=== PATIENT | female | born 1945 | race Caucasian/White ===

== ENCOUNTER 2016-11-04 21:28 | Emergency (ER) | payer MEDICARE ==
[~2016-11-04] VITALS: Ht 162.6 cm; Wt 87.6 kg
[~2016-11-04 21:28] MED LIST: ACET325 PO; ALBU0.086 NEB; ALBU1AER INH; ALBU8I INH; ATEN-100 PO; ATEN1TAB73 PO; CELE100C PO; CELE200 PO; CLAR10TA7 PO; CREON24 PO; CYMB30CA PO; CYMB60CA PO; DILA2TAB4 PO; LEVA750T PO; LEVO88TA2 PO; LIPA1CAP5 PO; MONT4CHW2 CHEW; NEXI20CA PO; OMEG500C2 PO; PROM1SUP12 PR; PROV200T11 PO; ROSU40 PO; SYNT88TA PO; TAB-TAB PO; TIGA300C2 PO; TUMS500C PO; ZOFR4TAB3 SL
[2016-11-04 21:31] VITALS: BP 122/84; PULSE 108; RESP 22; TEMP 102; O2SAT 94
--- NOTE | 2016-11-04 22:10 | PD ---
HPI Chief Complaint: Fever Time Seen by Provider: 21:46 Travel History International Travel<30 days: No Contact w/Intl Traveler<30days: No Traveled to known affect area: No History of Present Illness HPI 70-year-old female complains of fever, headache, shortness of breath and nausea vomiting. Patient states that she started having fever and shortness of breath and headache since yesterday. Patient states that the headache is shooting pain in the back of the head. Patient denies any visual change. Patient denies any neck pain. Patient complains of left ear pain. Patient denies any sore throat. Patient denies any cough. Patient denies shortness of breath. Patient states that she has some mild abdominal discomfort. Patient states that she vomited yesterday evening. Patient denies any dysuria or frequency. Patient denies any vaginal discharge or bleeding. Patient has history of COPD, hypothyroidism, pancreatitis, sarcoidosis. PFSH Past Medical History Arthritis: Yes Asthma: Yes Cancer: No Cardiovascular Problems: No High Cholesterol: Yes Chemotherapy: No COPD: No Cerebrovascular Accident: No Diminished Hearing: No Endocrine: Yes Gastrointestinal Disorders: Yes (IBS, GERD) GERD: Yes Genitourinary: No Hypertension: Yes Musculoskeletal: Yes Neurologic: Yes Psychiatric: No Reproductive: No Respiratory: Yes (ASTHMA, PLEURISY) Migraines: Yes Pancreatitis: Yes Radiation Therapy: No Thyroid Disease: Yes (HYPO) Triglycerides - High: Yes Tetanus Vaccination: Unknown ?: Not Menopausal: Yes Dilation and Curettage (D&C): Yes Past Surgical History Abdominal Surgery: Yes (APPENDECTOMY) Appendectomy: Yes Body Medical Devices: LEFT BREAST-TITATINUM CHIP Cardiac Surgery: Yes Cholecystectomy: Yes Ear Surgery: Yes (SINUS) Endocrine Surgery: No Eye Surgery: No Genitourinary Surgery: No Gynecologic Surgery: Yes (D & C) Oral Surgery: No Thoracic Surgery: No Tonsillectomy: Yes Other Surgery: Yes (SINUS) Social History Alcohol Use: No Tobacco Use: No Substance Use: No Allergies-Medications (Allergen,Severity, Reaction): Coded Allergies: penicillin G (Verified Allergy, Severe, Confusion, 11/04/16) diphenhydramine (Verified Allergy, Mild, VIOLENCE, 11/04/16) Reported Meds & Prescriptions Reported Meds & Active Scripts Active Creon (Amylase/Lipase/Protease) 24,000 Unt Cap 1 Cap PO TID 30 Days Phenergan 25 mg supp (Promethazine HCl) 25 Mg Sup 25 Mg NV Q6H PRN FOR NAUSEA/VOMITING Zofran ODT (Ondansetron HCl) 4 Mg Tab 4 Mg SL Q6H PRN FOR NAUSEA/VOMITING Reported Proventil Ud 0.083% (2.5 Mg/3 Ml) (Albuterol Sulfate) 2.5 Mg/3 Ml Inha 2.5 Mg NEB Q4HR NEB Singulair (Montelukast Sodium) 4 Mg Chew 4 Mg CHEW HS Proair Hfa (Albuterol Sulfate) 8.5 Gm Aero 1 Puff INH ONCE * SHAKE WELL BEFORE USE * Celebrex (Celecoxib) 100 Mg Cap 100 Mg PO DAILY PRN Nexium (Esomeprazole Magnesium) Unknown Strength Cap Unknown Dose PO DAILY Multivitamin (Multivitamins) 1 Tab Tab 1 Tab PO DAILY Provigil (Modafinil) 200 Mg Tab 100-200 Mg PO DAILY Tums (Calcium Carbonate) 500 Mg Chew 500 Mg PO PRN Celebrex (Celecoxib) 200 Mg Cap 200 Mg PO DAILY Tylenol (Acetaminophen) 325 Mg Tab 650 Mg PO Q4H Welsh-3 Krill Oil (Krill Oil) 500 Mg Cap 1,000 Mg PO DAILY Claritin (Loratadine) 10 Mg Tab 10 Mg PO DAILY Atenolol 25 Mg Tab 25 Mg PO DAILY Synthroid (Levothyroxine Sodium) 88 Mcg Tab 88 Mcg PO DAILY Cymbalta (Duloxetine HCl) 60 Mg Cap 60 Mg PO DAILY Review of Systems General / Constitutional: Positive: Fever Eyes: No: Visual changes HENT: Positive: Headaches Cardiovascular: No: Chest Pain or Discomfort Respiratory: No: Shortness of Breath Gastrointestinal: Positive: Vomiting, No: Abdominal Pain Genitourinary: No: Dysuria Musculoskeletal: No: Pain Skin: No Rash Neurologic: No: Weakness Psychiatric: No: Depression Endocrine: No: Polydipsia Hematologic/Lymphatic: No: Easy Bruising Physical Exam Narrative GENERAL: Well-nourished, well-developed patient. SKIN: Focused skin assessment warm/dry. HEAD: Normocephalic. EYES: No scleral icterus. No injection or drainage. TM: Clear. Throat: Nonerythematous. NECK: Supple, trachea midline. No JVD or lymphadenopathy. No meningismus CARDIOVASCULAR: Regular rate and rhythm without murmurs, gallops, or rubs. RESPIRATORY: Breath sounds equal bilaterally. No accessory muscle use. GASTROINTESTINAL: Abdomen soft, non-tender, nondistended. MUSCULOSKELETAL: No cyanosis, or edema. BACK: Nontender without obvious deformity. No CVA tenderness. Neurologic exam: Patient awake alert oriented 3. No obvious focal neurological deficit. Data Data Last Documented VS Vital Signs Date Time Temp Pulse Resp B/P (MAP) Pulse Ox O2 Delivery O2 Flow Rate FiO2 11/05/16 00:12 Room Air 11/05/16 00:11 102.5 97 18 151/62 (91) 95 Orders Orders Electrocardiogram (11/04/16 21:55) Complete Blood Count With Diff (11/04/16 21:55) Comprehensive Metabolic Panel (11/04/16 21:55) Creatine Kinase (Cpk) (11/04/16 21:55) Troponin I (11/04/16 21:55) B-Type Natriuretic Peptide (11/04/16 21:55) Prothrombin Time / Inr (Pt) (11/04/16 21:55) Act Partial Throm Time (Ptt) (11/04/16 21:55) Blood Culture (11/04/16 21:55) Urinalysis - C+S If Indicated (11/04/16 21:55) Thyroid Stimulating Hormone (11/04/16 21:55) Influenzae A/B Antigen (11/04/16 21:55) Chest, Single Ap (11/04/16 21:55) Ct Brain W/O Iv Contrast(Rout) (11/04/16 21:55) Iv Access Insert/Monitor (11/04/16 21:55) Ecg Monitoring (11/04/16 21:55) Oximetry (11/04/16 21:55) Lactic Acid (11/04/16 21:55) Lipase (11/04/16 22:08) Sodium Chlor 0.9% 1000 Ml Inj (Ns 1000 M (11/04/16 23:00) Morphine Inj (Morphine Inj) (11/04/16 23:30) Ondansetron Odt (Zofran Odt) (11/04/16 23:30) Acetaminophen (Tylenol) (11/04/16 23:30) Lidocaine 1% Inj (50 Ml) (Xylocaine 1% I (11/05/16 00:15) Ceftriaxone Inj (Rocephin Inj) (11/05/16 00:15) Labs Laboratory Tests Test 11/04/16 22:45 11/04/16 23:20 White Blood Count 13.0 TH/MM3 Red Blood Count 3.76 MIL/MM3 Hemoglobin 11.4 GM/DL Hematocrit 33.7 % Mean Corpuscular Volume 89.7 FL Mean Corpuscular Hemoglobin 30.3 PG Mean Corpuscular Hemoglobin Concent 33.7 % Red Cell Distribution Width 12.6 % Platelet Count 310 TH/MM3 Mean Platelet Volume 7.2 FL Neutrophils (%) (Auto) 82.9 % Lymphocytes (%) (Auto) 8.4 % Monocytes (%) (Auto) 7.3 % Eosinophils (%) (Auto) 1.0 % Basophils (%) (Auto) 0.4 % Neutrophils # (Auto) 10.8 TH/MM3 Lymphocytes # (Auto) 1.1 TH/MM3 Monocytes # (Auto) 0.9 TH/MM3 Eosinophils # (Auto) 0.1 TH/MM3 Basophils # (Auto) 0.1 TH/MM3 CBC Comment DIFF FINAL Differential Comment Prothrombin Time 11.3 SEC Prothromb Time International Ratio 1.0 RATIO Activated Partial Thromboplast Time 29.9 SEC Blood Urea Nitrogen 12 MG/DL Creatinine 0.73 MG/DL Random Glucose 106 MG/DL Total Protein 7.1 GM/DL Albumin 3.4 GM/DL Calcium Level 8.2 MG/DL Alkaline Phosphatase 76 U/L Aspartate Amino Transf (AST/SGOT) 24 U/L Alanine Aminotransferase (ALT/SGPT) 23 U/L Total Bilirubin 0.4 MG/DL Sodium Level 134 MEQ/L Potassium Level 3.5 MEQ/L Chloride Level 99 MEQ/L Carbon Dioxide Level 26.9 MEQ/L Anion Gap 8 MEQ/L Estimat Glomerular Filtration Rate 79 ML/MIN Lactic Acid Level 0.5 mmol/L Total Creatine Kinase 85 U/L Troponin I LESS THAN 0.02 NG/ML B-Type Natriuretic Peptide 75 PG/ML Lipase 72 U/L Thyroid Stimulating Hormone 3rd Gen 0.665 uIU/ML Urine Color YELLOW Urine Turbidity CLEAR Urine pH 6.0 Urine Specific [place] 1.027 Urine Protein 30 mg/dL Urine Glucose (UA) NEG mg/dL Urine Ketones 15 mg/dL Urine Occult Blood NEG Urine Nitrite NEG Urine Bilirubin NEG Urine Leukocyte Esterase NEG Urine WBC 3-5 /hpf Urine Squamous Epithelial Cells 0-5 /hpf Urine Hyaline Casts 3-5 /lpf Urine Mucus MOD /lpf Microscopic Urinalysis Comment CULT NOT INDICATED MDM Medical Decision Making Medical Screen Exam Complete: Yes Emergency Medical Condition: Yes Interpretation(s) Last Impressions Head CT 11/04/162154 Signed Impressions: Service Date/Time: Friday, November 04, 2016 22:15 - CONCLUSION: Negative noncontrast CT Matias Pina MD Chest X-Ray 11/04/162154 Signed Impressions: Service Date/Time: Friday, November 04, 2016 22:08 - CONCLUSION: No acute disease. Matias Pina MD 23:50 PM. WBC 13.0. Hemoglobin 11.4 hematocrit 33.7. 82 neutrophil. Sodium 134. Cardiac enzymes are normal. BNP 75. Lactic acid 0.5. UA is negative. Influenza AB antigen negative. Differential Diagnosis Differential diagnosis including viral syndrome, URI, bronchitis, pneumonia, UTI , sepsis. Narrative Course 70-year-old female with fever, headache, shortness of breath, vomiting. Unable to obtain IV access. Rocephin 1 g IM. Morphine 2 mg IM. Zofran 4 mg ODT. Patient advised to drink by mouth fluid. Return in 12 hours for recheck. Diagnosis Primary Impression: Fever Qualified Codes: R50.9 - Fever, unspecified Additional Impression: Leukocytosis Qualified Codes: D72.829 - Elevated white blood cell count, unspecified Patient Instructions: General Instructions Additional Instructions: Tylenol for fever. Return in 12 hours for recheck. Return immediately if any worse. Med/Other Pt SpecificInfo: No Change to Meds Disposition: 01 DISCHARGE HOME Condition: Stable David Chaves MD Nov 04, 2016 22:10
--- NOTE | 2016-11-04 22:24 | RADRPT ---
EXAM DATE/TIME: 11/04/2016 22:08 [facility] COMPARISON: CHEST SINGLE AP, April 05, 2015, 14:48. INDICATIONS : Fever. MEDICAL HISTORY : Hypothyroidism. Hypertension. Hypercholesterolemia. Asthma. Pleurisy SURGICAL HISTORY : None. ENCOUNTER: Initial ACUITY: 1 day PAIN SCORE: 0/10 LOCATION: Chest. FINDINGS: A single view of the chest demonstrates the lungs to be symmetrically aerated without evidence of mas s, infiltrate or effusion. The cardiomediastinal contours are unremarkable. Osseous structures are intact. CONCLUSION: No acute disease. Matias Pina MD on November 04, 2016 at 22:22 Board Certified Radiologist. This report was verified electronically.
--- NOTE | 2016-11-04 22:30 | RADRPT ---
EXAM DATE/TIME: 11/04/2016 22:15 [facility] COMPARISON: No previous studies available for comparison. INDICATIONS : Cephalgia today. RADIATION DOSE: 58.60 CTDIvol (mGy) MEDICAL HISTORY : Hypothyroidism. Hypertension. Chronic obstructive pulmonary disease. SURGICAL HISTORY : Tonsillectomy. sinus surgery ENCOUNTER: Initial ACUITY: 1 day PAIN SCALE: 9/10 LOCATION: Bilateral head TECHNIQUE: Multiple contiguous axial images were obtained of the head. Using automated exposure control and adj ustment of the mA and/or kV according to patient size, radiation dose was kept as low as reasonably a chievable to obtain optimal diagnostic quality images. DICOM format image data is available electro nically for review and comparison. FINDINGS: CEREBRUM: The ventricles are normal for age. Chronic small vessel ischemic changes are present. No evidence of midline shift, mass lesion, hemorrhage or acute infarction. No extra-axial fluid collections are see n. POSTERIOR FOSSA: The cerebellum and brainstem are intact. The 4th ventricle is midline. The cerebellopontine angle i s unremarkable. EXTRACRANIAL: The visualized portion of the orbits is intact. SKULL: The calvaria is intact. No evidence of skull fracture. CONCLUSION: Negative noncontrast CT Matias Pina MD on November 04, 2016 at 22:28 Board Certified Radiologist. This report was verified electronically.
[2016-11-04] MEDS ORDERED: SODIUM CHLOR 0.9% 1000 ML INJ 1,000 ML IV ONE (23:00)
[2016-11-04 23:21] VITALS: BP 161/78; PULSE 105; RESP 18; TEMP 102.7; O2SAT 94
[2016-11-04 23:23] VITALS: BP 161/78; PULSE 102; RESP 18; TEMP 102.7; O2SAT 94
[2016-11-04 23:23] LABS: CHLORIDE 99 MEQ/L (98-107); POTASSIUM 3.5 MEQ/L (3.5-5.1); SODIUM (NA) 134 MEQ/L (136-145)
[2016-11-04 23:24] LABS: BLOOD, URINE NEG (NEG); GLUCOSE,URINE NEG (NEG); KETONE, URINE 15 mg/dL (NEG); NITRITE,URINE NEG (NEG)
[2016-11-04 23:27] LABS: ANION GAP 8 MEQ/L (5-15); AUTOMATED NEUTROPHIL # 10.8 TH/MM3 (1.8-7.7); BASOPHIL # 0.1 TH/MM3 (0-0.2); BASOPHIL % 0.4 % (0.0-2.0); BICARBONATE 26.9 MEQ/L (21.0-32.0); BLOOD UREA NITROGEN 12 MG/DL (7-18); EOSINOPHIL # 0.1 TH/MM3 (0-0.4); HEMATOCRIT 33.7 % (35.0-46.0); HEMO FLAGS DIFF FINAL; LYMPH % 8.4 % (9.0-44.0); LYMPHOCYTE # 1.1 TH/MM3 (1.0-4.8); MEAN CELL VOLUME 89.7 FL (80.0-100.0); MEAN CORPUSCULAR HEMOGLOBIN 30.3 PG (27.0-34.0); MEAN CORPUSCULAR HGB CONC 33.7 % (32.0-36.0); MONO % 7.3 % (0.0-8.0); NEUT % 82.9 % (16.0-70.0); PLATELET COUNT 310 TH/MM3 (150-450); RED BLOOD COUNT 3.76 MIL/MM3 (4.00-5.30); RED CELL DISTRIBUTION WIDTH 12.6 % (11.6-17.2)
[2016-11-04 23:28] LABS: APTT (PATIENT) 29.9 SEC (24.3-30.1); PROTHROMBIN TIME - PATIENT 11.3 SEC (9.8-11.6)
[2016-11-04 23:29] LABS: URINE COLOR YELLOW (YELLW/STRAW)
[2016-11-04 23:30] LABS: ALT (GPT) 23 U/L (10-53); AST (GOT) 24 U/L (15-37); GLOMERULAR FILTRATION RATE 79 ML/MIN (>89)
[2016-11-04 23:30] LABS: MUCUS URINE MOD /lpf (OCC); SQUAMOUS EPITHELIAL CELL URINE 0-5 /hpf (0-5)
[2016-11-04] MEDS ORDERED: ONDANSETRON ODT 4 MG TAB PO ONE (23:30)
[2016-11-04] MEDS ORDERED: ACETAMINOPHEN 325 MG TAB PO ONE (23:30)
[2016-11-04] MEDS ORDERED: MORPHINE SULFATE 4 MG/ML INJ IM ONE (23:30)
[2016-11-04 23:31] LABS: COMMENT (UR) CULT NOT INDICATED; CULTURE IF INDICATED CULT NOT INDICATED
[2016-11-04 23:32] LABS: TOTAL BILIRUBIN ADULT 0.4 MG/DL (0.2-1.0)
[2016-11-04 23:33] LABS: ALKALINE PHOSPHATASE 76 U/L (45-117); CREATINE KINASE 85 U/L (26-192)
[2016-11-05 00:11] VITALS: BP 151/62; PULSE 97; RESP 18; TEMP 102.5; O2SAT 95
[2016-11-05] MEDS ORDERED: LIDOCAINE HCL 1% 50 ML VIAL IM ONE (00:15)
[2016-11-05 01:05] VITALS: BP 138/64; TEMP 100.9
--- NOTE | 2016-11-05 13:46 | EKG ---
Date Performed: 11/04/2016 Time Performed: 22:43:59 PTAGE: 70 years EKG: SINUS TACHYCARDIA POSSIBLE RIGHT VENTRICULAR CONDUCTION DELAY POSSIBLE INFERIOR MYOCARDIAL INFARCTION ABNORMAL RHYTHM ECG Compared to prior tracing no significant change PREVIOUS TRACING : 04/05/2015 14.56 DOCTOR: Juan David Crawford Interpretating Date/Time 11/05/2016 13:44:46
[2016-11-05] MEDS ORDERED: CLAR10CA3 PO (14:00)
[2016-11-05] MEDS ORDERED: MONT10TA4 PO (14:00)
[2016-11-05] MEDS ORDERED: CREO3000 PO (14:00)
[2016-11-05] MEDS ORDERED: LEVO88TA2 PO (14:00)
[2016-11-05] MEDS ORDERED: NORC5TAB PO (14:00)
[2016-11-05] MEDS ORDERED: LYRI50CA PO (14:00)
[2016-11-05] MEDS ORDERED: PROV100T10 PO (14:00)
[2016-11-05] MEDS ORDERED: ATEN25TA PO (14:00)
[2016-11-05] MEDS ORDERED: NEXI40CA PO (14:00)
[2016-11-05] MEDS ORDERED: ALBU0.08 NEB (14:14)
[2016-11-05] MEDS ORDERED: CEFU1TAB20 PO (16:03)
== END 2016-11-05 01:06 | disposition home or self-care (01) ==
LOC: PHED 21:28
DX: R50.9 Fever, unspecified (principal); D72.829 Elevated white blood cell count, unspecified; R51 Headache; R06.02 Shortness of breath; R11.2 Nausea with vomiting, unspecified; H92.02 Otalgia, left ear; R10.9 Unspecified abdominal pain; R94.31 Abnormal electrocardiogram [ECG] [EKG]; E03.9 Hypothyroidism, unspecified; I10 Essential (primary) hypertension; E78.5 Hyperlipidemia, unspecified; Z87.19 Personal history of other diseases of the digestive system; Z87.09 Personal history of other diseases of the respiratory system; Z87.39 Personal history of other diseases of the musculoskeletal system and connective tissue; Z86.69 Personal history of other diseases of the nervous system and sense organs
CPT/HCPCS: 70450; 71010; 80053; 81001; 82550; 83605; 83690; 83880; 84443; 84484; 85025; 85610; 85730; 87040; 87804; 93005; 96372; 99285; J2270; J0696

== ENCOUNTER 2016-11-05 12:56 | Emergency (ER) | payer MEDICARE ==
[~2016-11-05] VITALS: Ht 165.1 cm; Wt 79.1 kg
[~2016-11-05 12:56] MED LIST changes: -ALBU8I INH; -ATEN1TAB73 PO; -CYMB30CA PO; -DILA2TAB4 PO; -LEVA750T PO; -LEVO88TA2 PO; -LIPA1CAP5 PO; -ROSU40 PO; -TIGA300C2 PO
[2016-11-05 13:03] VITALS: BP 145/73; PULSE 98; RESP 22; TEMP 98.7; O2SAT 91
[2016-11-05] MEDS ORDERED: ONDANSETRON HCL 4 MG/2 ML VIAL IV PUSH ONE (13:45)
[2016-11-05] MEDS ORDERED: SODIUM CHLOR 0.9% 1000 ML INJ 1,000 ML IV ONE (13:45)
--- NOTE | 2016-11-05 13:58 | PD ---
HPI Chief Complaint: Respiratory Symptoms Time Seen by Provider: 13:31 Travel History International Travel<30 days: No Contact w/Intl Traveler<30days: No Traveled to known affect area: No History of Present Illness HPI 70 y/o female presents with head pressure, nausea, general ill feeling, fever, and congestion. She states dr guzman told her to come in for a recheck today. she notes no new complaints from yesterday. She feels worse when she moves around. she denies other modifying factors. quality is ill feeling. severity is all over. PFSH Past Medical History Arthritis: Yes Asthma: Yes Cancer: No Cardiovascular Problems: No High Cholesterol: Yes Chemotherapy: No COPD: No Cerebrovascular Accident: No Diminished Hearing: No Endocrine: Yes Gastrointestinal Disorders: Yes (IBS, GERD) GERD: Yes Genitourinary: No Hypertension: Yes Musculoskeletal: Yes Neurologic: Yes Psychiatric: No Reproductive: No Respiratory: Yes (ASTHMA, PLEURISY) Migraines: Yes Pancreatitis: Yes Radiation Therapy: No Thyroid Disease: Yes (HYPO) Triglycerides - High: Yes Influenza Vaccination: Yes ?: Not Menopausal: Yes Dilation and Curettage (D&C): Yes Past Surgical History Abdominal Surgery: Yes (APPENDECTOMY) Appendectomy: Yes Body Medical Devices: LEFT BREAST-TITATINUM CHIP Cardiac Surgery: Yes Cholecystectomy: Yes Ear Surgery: Yes (SINUS) Endocrine Surgery: No Eye Surgery: No Genitourinary Surgery: No Gynecologic Surgery: Yes (D & C) Oral Surgery: No Thoracic Surgery: No Tonsillectomy: Yes Other Surgery: Yes (SINUS) Social History Alcohol Use: No Tobacco Use: No Substance Use: No Allergies-Medications (Allergen,Severity, Reaction): Coded Allergies: penicillin G (Verified Allergy, Severe, Confusion, 11/05/16) diphenhydramine (Verified Allergy, Mild, VIOLENCE, 11/05/16) Reported Meds & Prescriptions Reported Meds & Active Scripts Active Cefuroxime (Cefuroxime Axetil) 500 Mg Tab 500 Mg PO BID 5 Days Reported Albuterol Neb (Albuterol Sulfate) 2.5 Mg/3 Ml Neb 2.5 Mg NEB Q4HR NEB While awake Nexium (Esomeprazole DR) 40 Mg Capdr 40 Mg PO DAILY Atenolol 25 Mg Tab 25 Mg PO DAILY Montelukast (Montelukast Sodium) 10 Mg Tab 10 Mg PO HS Claritin (Loratadine) 10 Mg Cap 10 Mg PO DAILY Creon (Pancrelipase) 3,000-9,500-15,000 Units Cap 2 Cap PO TIDPC Provigil (Modafinil) 100 Mg Tab 100 Mg PO DAILY Lyrica (Pregabalin) 50 Mg Cap 50 Mg PO TID Monette (Hydrocodone-Acetaminophen) 5-325 mg Tab 1-2 Tab PO Q6H PRN Levothyroxine (Levothyroxine Sodium) 88 Mcg Tab 88 Mcg PO DAILY Review of Systems Except as stated in HPI: all other systems reviewed are Neg Physical Exam Narrative GENERAL: Well-nourished, well-developed patient. well appearing SKIN: Warm and dry. HEAD: Normocephalic and atraumatic. EYES: No injection or drainage. ENT: No nasal drainage noted. bilateral tm clear, posterior oropharynx without exudate or erythema NECK: Supple, trachea midline. no meningeal signs CARDIOVASCULAR: Regular rate and rhythm RESPIRATORY: Breath sounds equal bilaterally. No accessory muscle use. GASTROINTESTINAL: Abdomen soft, non-tender, nondistended. EXTREMITIES: No edema. NEUROLOGICAL: Awake and alert. Motor and sensory grossly within normal limits. Normal speech. Data Data Last Documented VS Vital Signs Date Time Temp Pulse Resp B/P (MAP) Pulse Ox O2 Delivery O2 Flow Rate FiO2 11/05/16 16:15 11/05/16 16:08 90 18 96 Room Air 11/05/16 14:54 97.7 Orders Orders Complete Blood Count With Diff (11/05/16 13:41) Basic Metabolic Panel (Bmp) (11/05/16 13:41) Urinalysis - C+S If Indicated (11/05/16 13:41) Iv Access Insert/Monitor (11/05/16 13:41) Ecg Monitoring (11/05/16 13:41) Oximetry (11/05/16 13:41) Influenzae A/B Antigen (11/05/16 13:41) Ondansetron Inj (Zofran Inj) (11/05/16 13:45) Sodium Chlor 0.9% 1000 Ml Inj (Ns 1000 M (11/05/16 13:45) Ibuprofen (Motrin) (11/05/16 14:15) Chest, Pa & Lat (11/05/16 ) Labs Laboratory Tests Test 11/05/16 14:20 11/05/16 14:42 Urine Collection Type CLEAN CATCH Urine Color YELLOW Urine Turbidity CLEAR Urine pH 5.5 Urine Specific [place] 1.024 Urine Protein TRACE mg/dL Urine Glucose (UA) NEG mg/dL Urine Ketones 40 mg/dL Urine Occult Blood NEG Urine Nitrite NEG Urine Bilirubin NEG Urine Leukocyte Esterase NEG Urine RBC 0-3 /hpf Urine WBC 0-2 /hpf Urine Squamous Epithelial Cells 0-5 /hpf Microscopic Urinalysis Comment CULT NOT INDICATED Urine Collection Time 14:20 White Blood Count 11.7 TH/MM3 Red Blood Count 3.87 MIL/MM3 Hemoglobin 11.6 GM/DL Hematocrit 35.5 % Mean Corpuscular Volume 91.5 FL Mean Corpuscular Hemoglobin 30.1 PG Mean Corpuscular Hemoglobin Concent 32.8 % Red Cell Distribution Width 13.0 % Platelet Count 282 TH/MM3 Mean Platelet Volume 7.6 FL Neutrophils (%) (Auto) 80.1 % Lymphocytes (%) (Auto) 10.1 % Monocytes (%) (Auto) 7.9 % Eosinophils (%) (Auto) 1.1 % Basophils (%) (Auto) 0.8 % Neutrophils # (Auto) 9.4 TH/MM3 Lymphocytes # (Auto) 1.2 TH/MM3 Monocytes # (Auto) 0.9 TH/MM3 Eosinophils # (Auto) 0.1 TH/MM3 Basophils # (Auto) 0.1 TH/MM3 CBC Comment DIFF FINAL Differential Comment Blood Urea Nitrogen 12 MG/DL Creatinine 0.78 MG/DL Random Glucose 124 MG/DL Calcium Level 8.3 MG/DL Sodium Level 138 MEQ/L Potassium Level 3.3 MEQ/L Chloride Level 100 MEQ/L Carbon Dioxide Level 27.7 MEQ/L Anion Gap 10 MEQ/L Estimat Glomerular Filtration Rate 73 ML/MIN MDM Medical Decision Making Medical Screen Exam Complete: Yes Emergency Medical Condition: Yes Medical Record Reviewed: Yes (pmh confirmed, recent er visit and testing noted) Interpretation(s) CBC & BMP Diagram 11/05/16 14:42 Calcium Level 8.3 L Last 24 hours Impressions Chest X-Ray 11/05/16 0000 Signed Impressions: Service Date/Time: Saturday, November 05, 2016 15:04 - CONCLUSION: No evidence of acute cardiopulmonary disease. Merrill Ram MD Differential Diagnosis uri, uti, gastroenteritis, pneumonia, copd, sinusitis.... Narrative Course will check labs, ua, cxr and dose with ivf, motrin, zofran and reeval ed workup no emergent, Patient denies any new complaints and states that they are feeling better. will discuss with her primary Patient happy with care, all questions answered. Patient knows that follow up is incumbent on them and to return to the emergency room immediately if new or worsening symptoms develop. Patient given strict return precautions, vitals reviewed and are normal, agrees to further workup as an outpatient. Physician Communication Physician Communication dr mike states to co and will have staff call and check on her tommorrow, states given rocephin yesterday to send home on cefitin Diagnosis Primary Impression: Fever Qualified Codes: R50.9 - Fever, unspecified Patient Instructions: General Instructions Additional Instructions: return as needed, follow with primary tommorrow, tylenol and motrin as needed Med/Other Pt SpecificInfo: Prescription(s) given Scripts Cefuroxime (Cefuroxime) 500 Mg Tab 500 MG PO BID for Infection for 5 Days, TAB 0 Refills Prov: Kendy Floyd MD 11/05/16 Disposition: 01 DISCHARGE HOME Condition: Stable Kendy Floyd MD Nov 05, 2016 13:58
[2016-11-05] MEDS ORDERED: PROV100T10 PO (14:00)
[2016-11-05] MEDS ORDERED: ATEN25TA PO (14:00)
[2016-11-05] MEDS ORDERED: CREO3000 PO (14:00)
[2016-11-05] MEDS ORDERED: LEVO88TA2 PO (14:00)
[2016-11-05] MEDS ORDERED: NORC5TAB PO (14:00)
[2016-11-05] MEDS ORDERED: CLAR10CA3 PO (14:00)
[2016-11-05] MEDS ORDERED: MONT10TA4 PO (14:00)
[2016-11-05] MEDS ORDERED: LYRI50CA PO (14:00)
[2016-11-05] MEDS ORDERED: NEXI40CA PO (14:00)
[2016-11-05] MEDS ORDERED: ALBU0.08 NEB (14:14)
[2016-11-05] MEDS ORDERED: IBUPROFEN 600 MG TAB PO ONE (14:15)
[2016-11-05 14:36] LABS: BLOOD, URINE NEG (NEG); GLUCOSE,URINE NEG (NEG); KETONE, URINE 40 mg/dL (NEG); NITRITE,URINE NEG (NEG); PH, URINE 5.5 (5.0-8.5)
[2016-11-05 14:54] VITALS: BP 128/70; PULSE 84; RESP 18; TEMP 97.7; O2SAT 92
[2016-11-05 14:55] LABS: METHOD OF COLLECTION CLEAN CATCH; URINE COLOR YELLOW (YELLW/STRAW)
[2016-11-05 14:56] LABS: COMMENT (UR) CULT NOT INDICATED; CULTURE IF INDICATED CULT NOT INDICATED; RBC, URINE 0-3 /hpf (0-3); SQUAMOUS EPITHELIAL CELL URINE 0-5 /hpf (0-5); WBC, URINE 0-2 /hpf (0-5)
[2016-11-05 15:11] LABS: AUTOMATED NEUTROPHIL # 9.4 TH/MM3 (1.8-7.7); BASOPHIL # 0.1 TH/MM3 (0-0.2); BASOPHIL % 0.8 % (0.0-2.0); EOSINOPHIL # 0.1 TH/MM3 (0-0.4); EOSINOPHIL % 1.1 % (0.0-4.0); HEMATOCRIT 35.5 % (35.0-46.0); LYMPH % 10.1 % (9.0-44.0); LYMPHOCYTE # 1.2 TH/MM3 (1.0-4.8); MEAN CELL VOLUME 91.5 FL (80.0-100.0); MEAN CORPUSCULAR HEMOGLOBIN 30.1 PG (27.0-34.0); MEAN CORPUSCULAR HGB CONC 32.8 % (32.0-36.0); MONO % 7.9 % (0.0-8.0); NEUT % 80.1 % (16.0-70.0); PLATELET COUNT 282 TH/MM3 (150-450); RED BLOOD COUNT 3.87 MIL/MM3 (4.00-5.30); WHITE BLOOD COUNT 11.7 TH/MM3 (4.0-11.0)
[2016-11-05 15:13] LABS: HEMO FLAGS DIFF FINAL
[2016-11-05 15:31] LABS: POTASSIUM 3.3 MEQ/L (3.5-5.1)
[2016-11-05 15:36] LABS: BICARBONATE 27.7 MEQ/L (21.0-32.0)
--- NOTE | 2016-11-05 15:36 | RADRPT ---
EXAM DATE/TIME: 11/05/2016 15:04 [facility] COMPARISON: CHEST SINGLE AP, November 04, 2016, 22:08. INDICATIONS : Nausea, vomiting, and fever for 2 days. MEDICAL HISTORY : Hypothyroidism. Hypertension. Chronic obstructive pulmonary disease. SURGICAL HISTORY : Tonsillectomy. Sinus surgery. ENCOUNTER: Initial ACUITY: 2 days PAIN SCORE: 0/10 LOCATION: Bilateral chest FINDINGS: PA and lateral views of the chest demonstrate the lungs to be symmetrically aerated without evidence of mass, infiltrate or effusion. The cardiomediastinal contours are unremarkable. Osseous structure s are intact. CONCLUSION: No evidence of acute cardiopulmonary disease. Merrill Ram MD on November 05, 2016 at 15:34 Board Certified Radiologist. This report was verified electronically.
[2016-11-05 15:45] VITALS: O2SAT 90
[2016-11-05] MEDS ORDERED: CEFU1TAB20 PO (16:03)
[2016-11-05 16:08] VITALS: BP 117/68; PULSE 90; RESP 18; O2SAT 96
== END 2016-11-05 16:15 | disposition home or self-care (01) ==
LOC: PHED 12:56
DX: R50.9 Fever, unspecified (principal); K21.9 Gastro-esophageal reflux disease without esophagitis; K58.9 Irritable bowel syndrome, unspecified; I10 Essential (primary) hypertension
CPT/HCPCS: 71020; 80048; 81001; 85025; 87804; 96374; 99284; J0696; J2405; J7030

== ENCOUNTER 2017-02-09 15:15 | Emergency (ER) | payer MEDICARE ==
[~2017-02-09] VITALS: Ht 157.5 cm; Wt 80.0 kg
[~2017-02-09 15:15] MED LIST changes: -ACET325 PO; +ALBU0.08 NEB; -ALBU0.086 NEB; -ALBU1AER INH; -ATEN-100 PO; +ATEN25TA PO; +CEFU1TAB20 PO; -CELE100C PO; -CELE200 PO; +CLAR10CA3 PO; -CLAR10TA7 PO; +CREO3000 PO; -CREON24 PO; -CYMB60CA PO; +LEVO88TA2 PO; +LYRI50CA PO; +MODA2TAB PO; +MONT10TA4 PO; -MONT4CHW2 CHEW; -NEXI20CA PO; +NEXI40CA PO; +NORC5TAB PO; -OMEG500C2 PO; -PROM1SUP12 PR; -PROV200T11 PO; -SYNT88TA PO; -TAB-TAB PO; -TUMS500C PO; -ZOFR4TAB3 SL
[2017-02-09 15:18] VITALS: BP 197/81; PULSE 91; RESP 16; TEMP 97.7; O2SAT 95
[2017-02-09 15:24] VITALS: PULSE 85; RESP 16; O2SAT 86
[2017-02-09] MEDS ORDERED: CYMB60CA PO (15:31)
--- NOTE | 2017-02-09 15:42 | PD ---
HPI Chief Complaint: Fall Time Seen by Provider: 15:41 Travel History International Travel<30 days: No Contact w/Intl Traveler<30days: No Traveled to known affect area: No History of Present Illness HPI 71-year-old female had a trip and fall 1 week ago landing on the left side of her body. She contused her face and chest. She states that everything else seems to be healing however she has significant left-sided chest pain, worsening with deep inspiration or palpation. She is concerned she may have broken something or "something may be wrong." Pain is a constant 6 out of 10 but exacerbates to a 10 out of 10 with movement. Denies any hemoptysis. No shortness of breath. No fever or chills. She has no other symptoms to report. PFSH Past Medical History Arthritis: Yes Asthma: Yes Cancer: No Cardiovascular Problems: No High Cholesterol: Yes Chemotherapy: No COPD: No Cerebrovascular Accident: No Diminished Hearing: No Endocrine: Yes Gastrointestinal Disorders: Yes (IBS, GERD) GERD: Yes Genitourinary: No Hypertension: Yes Musculoskeletal: Yes Neurologic: Yes Psychiatric: No Reproductive: No Respiratory: Yes (ASTHMA, PLEURISY) Migraines: Yes Pancreatitis: Yes Radiation Therapy: No Thyroid Disease: Yes (HYPO) Triglycerides - High: Yes Menopausal: Yes Dilation and Curettage (D&C): Yes Past Surgical History Abdominal Surgery: Yes (APPENDECTOMY) Appendectomy: Yes Body Medical Devices: LEFT BREAST-TITATINUM CHIP Cardiac Surgery: Yes Cholecystectomy: Yes Ear Surgery: Yes (SINUS) Endocrine Surgery: No Eye Surgery: No Genitourinary Surgery: No Gynecologic Surgery: Yes (D & C) Oral Surgery: No Thoracic Surgery: No Tonsillectomy: Yes Other Surgery: Yes (SINUS) Social History Alcohol Use: No Tobacco Use: No Substance Use: No Allergies-Medications (Allergen,Severity, Reaction): Coded Allergies: penicillin G (Verified Allergy, Severe, Confusion, 11/05/16) diphenhydramine (Verified Allergy, Mild, VIOLENCE, 11/05/16) Reported Meds & Prescriptions Reported Meds & Active Scripts Active Reported Cymbalta DR (Duloxetine HCl) 60 Mg Capdr 60 Mg PO DAILY Albuterol Neb (Albuterol Sulfate) 2.5 Mg/3 Ml Neb 2.5 Mg NEB Q4HR NEB While awake Nexium (Esomeprazole DR) 40 Mg Capdr 40 Mg PO DAILY Atenolol 25 Mg Tab 25 Mg PO DAILY Montelukast (Montelukast Sodium) 10 Mg Tab 10 Mg PO HS Claritin (Loratadine) 10 Mg Cap 10 Mg PO DAILY Creon (Pancrelipase) 3,000-9,500-15,000 Units Cap 2 Cap PO TIDPC Provigil (Modafinil) 100 Mg Tab 100 Mg PO DAILY Lyrica (Pregabalin) 50 Mg Cap 50 Mg PO TID Dola (Hydrocodone-Acetaminophen) 5-325 mg Tab 1-2 Tab PO Q6H PRN Levothyroxine (Levothyroxine Sodium) 88 Mcg Tab 88 Mcg PO DAILY Review of Systems Except as stated in HPI: all other systems reviewed are Neg Physical Exam Narrative GENERAL: Well-nourished elderly female patient, sitting up in bed, in no acute distress. SKIN: Focused skin assessment warm/dry. Resolving left periorbital ecchymosis. HEAD: Normocephalic. EYES: Pupils equal and round. No scleral icterus. No injection or drainage. ENT: No nasal bleeding or discharge. Mucous membranes pink and moist. NECK: Trachea midline. No JVD. CARDIOVASCULAR: Elevated rate and rhythm. RESPIRATORY: No accessory muscle use. Clear to auscultation. Breath sounds equal bilaterally. Tenderness elicited palpation of the left anterior chest wall. No crepitus. Even respirations. GASTROINTESTINAL: Abdomen soft, non-tender, nondistended. Hepatic and splenic margins not palpable. MUSCULOSKELETAL: No obvious deformities. No clubbing. No cyanosis. No edema. Abduction of the left shoulder exacerbates left anterior chest pain. NEUROLOGICAL: Awake and alert. No obvious cranial nerve deficits. Motor grossly within normal limits. Normal speech. PSYCHIATRIC: Appropriate mood and affect; insight and judgment normal. Data Data Last Documented VS Vital Signs Date Time Temp Pulse Resp B/P (MAP) Pulse Ox O2 Delivery O2 Flow Rate FiO2 02/09/17 17:06 02/09/17 15:27 81 17 99 02/09/17 15:18 97.7 Orders Orders Electrocardiogram (02/09/17 ) Chest, Pa & Lat (02/09/17 ) Ed Discharge Order (02/09/17 16:37) MDM Medical Decision Making Medical Screen Exam Complete: Yes Emergency Medical Condition: Yes Medical Record Reviewed: Yes Differential Diagnosis Contusion versus fracture versus dislocation Narrative Course 71-year-old female presents to emergency department following a trip and fall that occurred 1 week ago. Patient appears without distress. She does have reproducible pain with palpation and movement on the left anterior chest wall. I have discussed the patient with my attending physician who recommends chest x- ray. The fall did occur 1 week ago patient has not fallen since. It was a mechanical fall. At this time this does not need to be looked into further emergently. Last Impressions Chest X-Ray 02/09/17 0000 Signed Impressions: Service Date/Time: Thursday, February 09, 2017 15:55 - CONCLUSION: 1. The ribs appear grossly intact. 2. Questionable focal densities in the left mid and lower lung. These areas could be further evaluated with a noncontrast CT examination at some point. Merrill Blackwell MD Patient has known nodules in her lung. I have reviewed the findings with her and encouraged outpatient follow-up. She has pain control at home. She agrees to return immediately with any acute worsening of symptoms. Diagnosis Primary Impression: Chest wall pain Additional Impression: Contusion of rib on left side Qualified Codes: S20.212A - Contusion of left front wall of thorax, initial encounter Referrals: Primary Care Physician Patient Instructions: General Instructions, Rib Contusion (ED) Additional Instructions: It is important you continue to cough and deep breathe Continue taking pain medication as already prescribed as needed for pain Follow-up with a primary care provider Recommended CT follow-up for possible lung nodules identified today on x-ray Return immediately to the emergency department with any acute worsening symptoms Med/Other Pt SpecificInfo: No Change to Meds Disposition: 01 DISCHARGE HOME Condition: Stable ArmandoFlori GRIJALVA Feb 09, 2017 15:42
--- NOTE | 2017-02-09 16:32 | RADRPT ---
EXAM DATE/TIME: 02/09/2017 15:55 [facility] COMPARISON: CHEST PA & LAT, November 05, 2016, 15:04. INDICATIONS : Chest pain post fall. MEDICAL HISTORY : Hypercholesterolemia. Hypertension Hypothyroidism. Asthma, GERD, Pleurisy, Athritis, Pancreatitis . SURGICAL HISTORY : Appendectomy. Cholecystectomy. Tonsillectomy. Right shoulder rotator cuff. ENCOUNTER: Initial ACUITY: 4 - 6 days PAIN SCORE: 6/10 LOCATION: Bilateral chest Left side. FINDINGS: The ribs appear grossly intact. The heart size is normal. There are questionable focal density seen i n the left mid lung and at the left lateral base adjacent to the left heart border. Focal nodules can not be excluded. Lungs appear otherwise grossly clear. No effusion is seen. There is mild spurring in the thoracic spine. CONCLUSION: 1. The ribs appear grossly intact. 2. Questionable focal densities in the left mid and lower lung. These areas could be further evaluate d with a noncontrast CT examination at some point. Merrill Blackwell MD on February 09, 2017 at 16:27 Board Certified Radiologist. This report was verified electronically.
--- NOTE | 2017-02-10 18:29 | EKG ---
Date Performed: 02/09/2017 Time Performed: 15:34:42 PTAGE: 71 years EKG: Sinus rhythm INCOMPLETE RIGHT BUNDLE BRANCH BLOCK Possible inferior Myocardial infarction Compared to previous tr acing, sinus rate is slower BORDERLINE ECG PREVIOUS TRACING : 11/04/16 @ 2243 DOCTOR: Michi Jimenes Interpretating Date/Time 02/10/2017 18:27:24
== END 2017-02-09 17:07 | disposition home or self-care (01) ==
LOC: NEPE 15:15
DX: S20.212A Contusion of left front wall of thorax, initial encounter (principal); R07.89 Other chest pain; I45.10 Unspecified right bundle-branch block; J45.909 Unspecified asthma, uncomplicated; I10 Essential (primary) hypertension; E78.00 Pure hypercholesterolemia, unspecified; E03.9 Hypothyroidism, unspecified; Z87.19 Personal history of other diseases of the digestive system; W01.0XXA Fall on same level from slipping, tripping and stumbling without subsequent striking against object, initial encounter
CPT/HCPCS: 71020; 93005; 99284

== ENCOUNTER → 2017-08-07 | Outpatient (CLI) | payer MEDICARE ==
[~2017-08-07] MED LIST changes: -CEFU1TAB20 PO; +CYMB60CA PO
[2017-08-07 18:13] LABS: ALBUMIN 3.8 GM/DL (3.4-5.0); AST (GOT) 13 U/L (15-37); AUTOMATED NEUTROPHIL # 5.7 TH/MM3 (1.8-7.7); BASOPHIL # 0.1 TH/MM3 (0-0.2); BASOPHIL % 1.3 % (0.0-2.0); BICARBONATE 27.6 MEQ/L (21.0-32.0); BLOOD UREA NITROGEN 32 MG/DL (7-18); CALCIUM 9.1 MG/DL (8.5-10.1); CHLORIDE 100 MEQ/L (98-107); CHOLESTEROL 279 MG/DL (120-200); CREATININE 1.01 MG/DL (0.50-1.00); EOSINOPHIL # 0.3 TH/MM3 (0-0.4); EOSINOPHIL % 3.6 % (0.0-4.0); GLOMERULAR FILTRATION RATE 54 ML/MIN (>89); GLUCOSE,FASTING 90 MG/DL (74-99); HEMATOCRIT 38.8 % (35.0-46.0); HEMOGLOBIN 12.7 GM/DL (11.6-15.3); LYMPH % 23.8 % (9.0-44.0); LYMPHOCYTE # 2.2 TH/MM3 (1.0-4.8); MEAN CELL VOLUME 92.5 FL (80.0-100.0); MEAN CORPUSCULAR HEMOGLOBIN 30.3 PG (27.0-34.0); MEAN CORPUSCULAR HGB CONC 32.8 % (32.0-36.0); MEAN PLATELET VOLUME 7.4 FL (7.0-11.0); MONO % 9.2 % (0.0-8.0); MONOCYTE # 0.8 TH/MM3 (0-0.9); NEUT % 62.1 % (16.0-70.0); PLATELET COUNT 525 TH/MM3 (150-450); RED BLOOD COUNT 4.19 MIL/MM3 (4.00-5.30); RED CELL DISTRIBUTION WIDTH 14.5 % (11.6-17.2); SODIUM (NA) 138 MEQ/L (136-145); TRIGLYCERIDES 297 MG/DL (42-150); WHITE BLOOD COUNT 9.1 TH/MM3 (4.0-11.0)
[2017-08-07 18:23] LABS: ALKALINE PHOSPHATASE 85 U/L (45-117); ALT (GPT) 26 U/L (10-53); CHOLESTEROL/ HDL RATIO 3.72 RATIO; HDL CHOLESTEROL 74.9 MG/DL (40.0-60.0); LDL CHOLESTEROL 145 MG/DL (0-99); TOTAL BILIRUBIN ADULT 0.3 MG/DL (0.2-1.0); TOTAL PROTEIN 8.1 GM/DL (6.4-8.2)
[2017-08-11 23:52] LABS: A FUMIGATUS LESS THAN 0.10 kU/L; A FUMIGATUS CLASS 0; A TENUIS LESS THAN 0 kU/L; A TENUIS CLASS 0; BAHIA GRASS LESS THAN 0.10 kU/L; BAHIA GRASS CLASS 0; BERMUDA GRASS LESS THAN 0.10 kU/L; BERMUDA GRASS CLASS 0; BIRCH LESS THAN 0.10 kU/L; BIRCH CLASS 0; C HERBARUM LESS THAN 0.10 kU/L; C HERBARUM CLASS 0; CAT DANDER LESS THAN 0.10 kU/L; CAT DANDER CLASS 0; COCKROACH LESS THAN 0.10 kU/L; COCKROACH CLASS 0; COMMON PIGWEED LESS THAN 0.10 kU/L; COMMON PIGWEED CLASS 0; COMMON RAGWEED LESS THAN 0.10 kU/L; COMMON RAGWEED CLASS 0; D FARINAE 2.08 kU/L; D FARINAE CLASS 2; D PTERONYSSINUS 3.89 kU/L; D PTERONYSSINUS CLASS 3; DOG DANDER LESS THAN 0.10 kU/L; DOG DANDER CLASS 0; ELM LESS THAN 0.10 kU/L; ELM CLASS 0; IMMUNOGLOBULIN E 35 kU/L (114 OR LESS); MAPLE (BOX ELDER) LESS THAN 0.10 kU/L; MAPLE (BOX ELDER) CLASS 0; MOUNTAIN CEDAR LESS THAN 0.10 kU/L; MOUNTAIN CEDAR CLASS 0; NETTLE LESS THAN 0.10 kU/L; NETTLE CLASS 0; OAK WHITE LESS THAN 0.10 kU/L; OAK WHITE CLASS 0; P NOTATUM LESS THAN 0.10 kU/L; P NOTATUM CLASS 0; PECAN TREE LESS THAN 0.10 kU/L; PECAN TREE CLASS 0; SHEEP SORREL LESS THAN 0.10 kU/L; SHEEP SORREL CLASS 0; TIMOTHY GRASS LESS THAN 0.10 kU/L; TIMOTHY GRASS CLASS 0
== END ==
LOC: PLAB 11:38
DX: E03.9 Hypothyroidism, unspecified (principal); E78.5 Hyperlipidemia, unspecified; I10 Essential (primary) hypertension; J30.1 Allergic rhinitis due to pollen; J30.81 Allergic rhinitis due to animal (cat) (dog) hair and dander
CPT/HCPCS: 36415; 80053; 80061; 82785; 84443; 85025; 86003

== ENCOUNTER 2018-02-02 20:25 | Observation (INO) ==
[2018-02-02 21:14] LABS: Baso # (Auto) 0.3 th/mm3 (0.0-0.2); Baso % (Auto) 1.1 % (0.0-2.0); Eos % (Auto) 0.2 % (0.0-4.0); Hematocrit 33.7 % (35.0-46.0); Hemoglobin 11.5 gm/dL (11.6-15.3); Lymph # (Auto) 0.8 th/mm3 (1.0-4.8); Lymph % (Auto) 3.3 % (9.0-44.0); Mean Corpuscular HGB Conc 34.2 % (32.0-36.0); Mean Corpuscular Hemoglobin 30.6 pg (27.0-34.0); Mean Corpuscular Volume 89.4 fL (80.0-100.0); Mean Platelet Volume 7.2 fL (7.0-11.0); Mono # (Auto) 1.6 th/mm3 (0.0-0.9); Neut # (Auto) 20.2 th/mm3 (1.8-7.7); Neut % (Auto) 88.4 % (16.0-70.0); Platelet Count 333 th/mm3 (150-450); Red Blood Count 3.77 mil/mm3 (4.00-5.30); White Blood Count 22.9 th/mm3 (4.0-11.0)
--- NOTE | 2018-02-02 21:17 | XR ---
EXAM DATE: 02/02/2018 9:15 PM EST AGE/SEX: 72 years / Female INDICATIONS: Shortness of breath. CLINICAL DATA: This is the patient's initial encounter. Patient reports that signs and symptoms have been present for 1 day and indicates a pain score of 0/10. MEDICAL/SURGICAL HISTORY: . Chronic obstructive pulmonary disease. Gastroesophageal reflux dise ase. Lupus. Asthma. Hypertension. Sarcoidosis. None. COMPARISON: [facility] [place]ST [place] & [place], 02/09/2017. . FINDINGS: A single AP view of the chest demonstrates the lungs to be symmetrically aerated without evidence of mass, infiltrate or effusion. The cardiomediastinal contours are unremarkable. Osseous structures a re intact. CONCLUSION: No acute cardiopulmonary disease demonstrated. Electronically signed by: Merrill Ram MD 02/02/2018 9:16 PM EST
[2018-02-02 21:28] LABS: Chloride 97 meq/L (98-107); Potassium 3.1 meq/L (3.5-5.1); Sodium 133 meq/L (136-145)
[2018-02-02 21:32] LABS: Albumin 3.1 g/dL (3.4-5.0); Anion Gap 11 meq/L (5-15); Calcium 8.2 mg/dL (8.5-10.1); Carbon Dioxide 24.6 meq/L (21.0-32.0); Lipase 40 U/L (73-393)
[2018-02-02 21:33] LABS: Blood Urea Nitrogen 10 mg/dL (7-18); Glucose,Random 153 mg/dL (74-106)
[2018-02-02 21:36] LABS: Alanine Aminotransferase 28 U/L (10-53); Aspartate Aminotransferase 30 U/L (15-37); Glomerular Filtration Rate 81 mL/min (>89)
[2018-02-02 21:37] LABS: Total Protein 7.8 g/dL (6.4-8.2)
[2018-02-02 21:38] LABS: Alkaline Phosphatase 108 U/L (45-117)
[2018-02-02] MEDS ORDERED: Vancomycin Inj 1,000 MG in Sodium Chlor 0.9% Inj 250 ML IV.SIG ONE (22:07)
[2018-02-02] MEDS ORDERED: Acetaminophen 500 MG Tablet PO ONE (22:07)
[2018-02-02] MEDS ORDERED: Sod Chloride 0.9% Inj 1,000 ML IV.SIG SCH (22:15)
[2018-02-02] MEDS ORDERED: Acetaminophen 325 MG Tablet PO PRN (22:51)
[2018-02-02] MEDS ORDERED: Bisacodyl 10 MG Supp RECTAL PRN (22:51)
--- NOTE | 2018-02-02 22:58 | ED ---
HPI General Chief Complaint: Respiratory Symptoms Stated Complaint: trouble breathing Time Seen by Provider: 02/02/18 20:59 Source: patient Mode of arrival: ambulatory Limitations: no limitations History of Present Illness MD Complaint: Reports fever, cough and nasal congestion Onset (ago): day(s) (3) Duration: constant Severity: moderate Severity scale (1-10): 5 Relieving factors: nothing Exacerbating factors: exertion Description of mucous: Reports clear Able to tolerate fluids by mouth: Yes Context: Denies sick contacts, recent travel, recent dental work and multiple patients with similar complaints Associated symptoms: Reports fever, chills, nasal congestion, cough, shortness of breath and nausea; Denies voice changes, myalgias, diaphoresis, headache, rhinorrhea, sore throat, stiff neck, chest pain, abdominal pain, vomiting, diarrhea, dysuria, rash, epistaxis and ear pain Treatments prior to arrival: Reports acetaminophen (12 noon) Related Data Home Medications Medication Instructions Recorded Confirmed albuterol sulfate [Ventolin HFA] 2 puff INHALATION Q4-6H PRN 12/17/17 02/02/18 atenolol 25 mg PO DAILY 12/17/17 02/02/18 duloxetine [Cymbalta] 60 mg PO DAILY 12/17/17 02/02/18 fluticasone-vilanterol [Breo 1 inh INHALATION DAILY 12/17/17 02/02/18 Ellipta] levothyroxine 88 mcg PO DAILY 12/17/17 02/02/18 loratadine 10 mg PO DAILY 12/17/17 02/02/18 modafinil 200 mg PO DAILY 12/17/17 02/02/18 montelukast 10 mg PO QPM 12/17/17 02/02/18 pregabalin [Lyrica] 50 mg PO BID 12/17/17 02/02/18 esomeprazole magnesium [Nexium] 40 mg PO DAILY 02/02/18 02/02/18 Previous Rx's Medication Instructions Recorded hydrocodone-acetaminophen [[place]] 1 tab PO Q6H PRN #12 tab 12/17/17 Allergies Allergy/AdvReac Type Severity Reaction Status Date / Time penicillin G Allergy Severe Confusion Verified 11/05/16 13:09 diphenhydramine Allergy Mild VIOLENCE Verified 11/05/16 13:09 Review of Systems ROS: all other systems reviewed are negative PMFSH Medical History Medical History Asthma (Chronic) COPD (chronic obstructive pulmonary disease) (Chronic) GERD (gastroesophageal reflux disease) (Chronic) High cholesterol (Chronic) Hypertension (Chronic) Hypothyroidism (Chronic) Lupus (Chronic) Sarcoidosis (Chronic) Seasonal allergies (Chronic) Surgical History Surgical History History of appendectomy (Chronic) History of carpal tunnel surgery of left wrist (Chronic) History of tonsillectomy and adenoidectomy (Chronic) Hx of cholecystectomy (Chronic) Hx of shoulder surgery (Chronic) Hx of sinus surgery (Chronic) Social History Social History Substance History: No History of Abuse Second Hand Smoke Exposure: No Smoking Status: Never smoker How Often Do You Have a Drink Containing Alcohol: Never Recent Travel in [facility] within the Last 8 Weeks: No Recent Out of Country Travel within the Last 8 Weeks: No Immunization History Tetanus Immunization: Unsure Exam Narrative Exam Narrative: GENERAL: Well-nourished, well-developed patient. No acute distress no respiratory distress no dyspnea stridor or hoarseness. No accessory muscle use. Patient is identified to have abnormal vital signs upon arrival with sinus tachycardia by color television console monitor febrile at 101.8 room air O2 saturation 94% blood pressure elevated 169/88 SKIN: Focused skin assessment warm/dry. No erythema no induration no fluctuance no petechia no purpura no vesicles no pustules. No rash. HEAD: Normocephalic. EYES: No scleral icterus. No injection or drainage. NECK: Supple, trachea midline. No JVD or lymphadenopathy. CARDIOVASCULAR: Increased regular rate and rhythm without murmurs, gallops, or rubs. RESPIRATORY: Breath sounds equal bilaterally. No accessory muscle use. Clear to auscultation. GASTROINTESTINAL: Abdomen soft, non-tender, nondistended. MUSCULOSKELETAL: No cyanosis, or edema. NO pedal or LE edema, non tender to palpation. Bilateral radial dorsalis pedis pulses 2+ to palpation. BACK: Nontender without obvious deformity. No CVA tenderness. Course Initial Documented Vital Signs Temperature 102.6 F H 02/02/18 20:29 Pulse Rate 112 H 02/02/18 20:29 Respiratory Rate 20 02/02/18 20:29 Blood Pressure 169/88 H 02/02/18 20:29 Pulse Oximetry 94 L 02/02/18 20:29 Last Documented Vital Signs Temperature 100.4 F H 02/03/18 20:00 Pulse Rate 89 02/03/18 20:00 Respiratory Rate 18 02/03/18 20:00 Blood Pressure 138/63 02/03/18 20:00 Pulse Oximetry 93 L 02/03/18 20:00 Medical Decision Making MDM Narrative Medical decision making narrative: 72-year-old female presents to the emergency department for complaint of dyspnea upper respiratory tract infection myalgias arthralgias without wheezing or symptoms typical of exacerbation of her COPD no prior history of cardiac disease or CHF. No orthopnea or PND. Patient has dyspnea at rest and with exertion. Patient noted today to have fever and take acetaminophen and had episode of diaphoresis. Due to ongoing fatigue and feeling ill decided to finally come to the emergency room for evaluation was identified to be febrile with associated sinus tachycardia O2 saturations 94% with history of severe COPD with no evidence of work of breathing or wheezing. Sepsis protocol initiated. IV access obtained specimens collected and sent for resulting patient given IV antibiotics acetaminophen and IV fluids Patient is aware of plan for admission Lung sounds remain clear to auscultation Total white cell count is elevated 22,900 with left shift chemistries grossly within normal limits and lactic acid is not elevated at 1.1 chest x-ray reveals no lobar infiltrate or effusion although poor respiratory effort. Urinalysis pending Influenza A/B antigen pending At 10:55 PM case discussed with medicine service for admission for probable pneumonia although at this time no evidence of infiltrate on chest x-ray will cover with broad-spectrum antibiotic as no obvious source of infection at this time but at least meet Sirs criteria and if not sepsis. Patient's case discussed with Dr. Dietrich who graciously accepts patient for admission to her service. Medical Screen Exam Complete: Yes Emergency Medical Condition: Yes Differential Diagnosis Differential Diagnosis: Dyspnea, URI, febrile illness, influenza, sepsis Medical Records Medical records reviewed: Yes I reviewed the patient's medical records. Lab Data Lab results reviewed: Yes I reviewed the patient's lab results. Result diagrams: 02/03/18 05:40 02/03/18 05:40 Lab Results 02/02/18 02/02/18 02/02/18 Range/Units 21:00 21:00 21:00 CBC w Diff Auto diff final WBC 22.9 H (4.0-11.0) th/mm3 RBC 3.77 L (4.00-5.30) mil/mm3 Hgb 11.5 L (11.6-15.3) gm/dL Hct 33.7 L (35.0-46.0) % MCV 89.4 (80.0-100.0) fL MCH 30.6 (27.0-34.0) pg MCHC 34.2 (32.0-36.0) % RDW 13.0 (11.6-17.2) % Plt Count 333 (150-450) th/mm3 MPV 7.2 (7.0-11.0) fL Neut % (Auto) 88.4 H (16.0-70.0) % Lymph % (Auto) 3.3 L (9.0-44.0) % Graves % (Auto) 7.0 (0.0-8.0) % Eos % (Auto) 0.2 (0.0-4.0) % Baso % (Auto) 1.1 (0.0-2.0) % Neut # (Auto) 20.2 H (1.8-7.7) th/mm3 Lymph # (Auto) 0.8 L (1.0-4.8) th/mm3 Graves # (Auto) 1.6 H (0.0-0.9) th/mm3 Eos # (Auto) 0.0 (0.0-0.4) th/mm3 Baso # (Auto) 0.3 H (0.0-0.2) th/mm3 WBC Differential . Seg Neuts % (Manual) (16-70) % Band Neuts % (Manual) (0-6) % Lymphocytes % (Manual) (9-44) % Monocytes % (Manual) (0-8) % Eosinophils % (Manual) (0-4) % Abs Neuts (Manual) (1.8-7.7) th/mm3 Differential Comment . Platelet Estimate (Normal) Platelet Morphology (Normal) Sodium 133 L (136-145) meq/L Potassium 3.1 L (3.5-5.1) meq/L Chloride 97 L (98-107) meq/L Carbon Dioxide 24.6 (21.0-32.0) meq/L Anion Gap 11 (5-15) meq/L BUN 10 (7-18) mg/dL Creatinine 0.71 (0.50-1.00) mg/dL Estimated GFR 81 L (>89) mL/min Random Glucose 153 H (74-106) mg/dL Lactic Acid 1.1 (0.4-2.0) mmol/L Calcium 8.2 L (8.5-10.1) mg/dL Magnesium (1.5-2.5) mg/dL Total Bilirubin 1.0 (0.2-1.0) mg/dL AST 30 (15-37) U/L ALT 28 (10-53) U/L Alkaline Phosphatase 108 (45-117) U/L Troponin I Less than 0.02 L (0.02-0.05) ng/mL Total Protein 7.8 (6.4-8.2) g/dL Albumin 3.1 L (3.4-5.0) g/dL Lipase 40 L (73-393) U/L Urine Color (Yellw/Straw) Urine Clarity (Clear) Urine pH (5.0-8.5) Ur Specific [place] (1.002-1.035) Urine Protein (Neg-Trace) mg/dL Urine Glucose (UA) (Negative) mg/dL Urine Ketones (Negative) mg/dL Urine Occult Blood (Negative) Urine Nitrate (Negative) Urine Bilirubin (Negative) Urine Urobilinogen (Less than 2) mg/dL Ur Leukocyte Esterase (Negative) Urine RBC (0-3) /hpf Urine WBC (0-5) /hpf Ur Squamous Epith Cells (0-5) /hpf Urine Bacteria (None) /hpf Micro UA Comment Ur Microscopic Review Urine Culture Comments 02/02/18 02/03/18 02/03/18 Range/Units 23:30 01:10 01:42 CBC w Diff WBC (4.0-11.0) th/mm3 RBC (4.00-5.30) mil/mm3 Hgb (11.6-15.3) gm/dL Hct (35.0-46.0) % MCV (80.0-100.0) fL MCH (27.0-34.0) pg MCHC (32.0-36.0) % RDW (11.6-17.2) % Plt Count (150-450) th/mm3 MPV (7.0-11.0) fL Neut % (Auto) (16.0-70.0) % Lymph % (Auto) (9.0-44.0) % Graves % (Auto) (0.0-8.0) % Eos % (Auto) (0.0-4.0) % Baso % (Auto) (0.0-2.0) % Neut # (Auto) (1.8-7.7) th/mm3 Lymph # (Auto) (1.0-4.8) th/mm3 Graves # (Auto) (0.0-0.9) th/mm3 Eos # (Auto) (0.0-0.4) th/mm3 Baso # (Auto) (0.0-0.2) th/mm3 WBC Differential Seg Neuts % (Manual) (16-70) % Band Neuts % (Manual) (0-6) % Lymphocytes % (Manual) (9-44) % Monocytes % (Manual) (0-8) % Eosinophils % (Manual) (0-4) % Abs Neuts (Manual) (1.8-7.7) th/mm3 Differential Comment Platelet Estimate (Normal) Platelet Morphology (Normal) Sodium (136-145) meq/L Potassium (3.5-5.1) meq/L Chloride (98-107) meq/L Carbon Dioxide (21.0-32.0) meq/L Anion Gap (5-15) meq/L BUN (7-18) mg/dL Creatinine (0.50-1.00) mg/dL Estimated GFR (>89) mL/min Random Glucose (74-106) mg/dL Lactic Acid 1.0 (0.4-2.0) mmol/L Calcium (8.5-10.1) mg/dL Magnesium (1.5-2.5) mg/dL Total Bilirubin (0.2-1.0) mg/dL AST (15-37) U/L ALT (10-53) U/L Alkaline Phosphatase (45-117) U/L Troponin I Less than 0.02 L (0.02-0.05) ng/mL Total Protein (6.4-8.2) g/dL Albumin (3.4-5.0) g/dL Lipase (73-393) U/L Urine Color Yellow (Yellw/Straw) Urine Clarity Clear (Clear) Urine pH 6.0 (5.0-8.5) Ur Specific [place] Less/equal 1.005 (1.002-1.035) Urine Protein Negative (Neg-Trace) mg/dL Urine Glucose (UA) Negative (Negative) mg/dL Urine Ketones 40 H (Negative) mg/dL Urine Occult Blood Trace (Negative) Urine Nitrate Negative (Negative) Urine Bilirubin Negative (Negative) Urine Urobilinogen 0.2 (Less than 2) mg/dL Ur Leukocyte Esterase Small H (Negative) Urine RBC 0-3 (0-3) /hpf Urine WBC 6-8 H (0-5) /hpf Ur Squamous Epith Cells 6-10 H (0-5) /hpf Urine Bacteria Few H (None) /hpf Micro UA Comment Culture not ind Ur Microscopic Review Microscopic reviewed Urine Culture Comments Culture not ind 02/03/18 02/03/18 02/03/18 Range/Units 05:40 05:40 05:40 CBC w Diff Slide review pending WBC 22.7 H (4.0-11.0) th/mm3 RBC 3.63 L (4.00-5.30) mil/mm3 Hgb 11.2 L (11.6-15.3) gm/dL Hct 33.1 L (35.0-46.0) % MCV 91.0 (80.0-100.0) fL MCH 30.8 (27.0-34.0) pg MCHC 33.8 (32.0-36.0) % RDW 13.2 (11.6-17.2) % Plt Count 315 (150-450) th/mm3 MPV 8.0 (7.0-11.0) fL Neut % (Auto) 88.2 H (16.0-70.0) % Lymph % (Auto) 5.5 L (9.0-44.0) % Graves % (Auto) 5.8 (0.0-8.0) % Eos % (Auto) 0.2 (0.0-4.0) % Baso % (Auto) 0.3 (0.0-2.0) % Neut # (Auto) 20.0 H (1.8-7.7) th/mm3 Lymph # (Auto) 1.3 (1.0-4.8) th/mm3 Graves # (Auto) 1.3 H (0.0-0.9) th/mm3 Eos # (Auto) 0.0 (0.0-0.4) th/mm3 Baso # (Auto) 0.1 (0.0-0.2) th/mm3 WBC Differential Manual diff final Seg Neuts % (Manual) 78 H (16-70) % Band Neuts % (Manual) 13 H (0-6) % Lymphocytes % (Manual) 5 L (9-44) % Monocytes % (Manual) 3 (0-8) % Eosinophils % (Manual) 1 (0-4) % Abs Neuts (Manual) 20.7 H (1.8-7.7) th/mm3 Differential Comment . Platelet Estimate Normal (Normal) Platelet Morphology Normal (Normal) Sodium 138 (136-145) meq/L Potassium 3.1 L (3.5-5.1) meq/L Chloride 101 (98-107) meq/L Carbon Dioxide 27.6 (21.0-32.0) meq/L Anion Gap 9 (5-15) meq/L BUN 10 (7-18) mg/dL Creatinine 0.79 (0.50-1.00) mg/dL Estimated GFR 71 L (>89) mL/min Random Glucose 147 H (74-106) mg/dL Lactic Acid (0.4-2.0) mmol/L Calcium 8.0 L (8.5-10.1) mg/dL Magnesium 1.0 L (1.5-2.5) mg/dL Total Bilirubin (0.2-1.0) mg/dL AST (15-37) U/L ALT (10-53) U/L Alkaline Phosphatase (45-117) U/L Troponin I (0.02-0.05) ng/mL Total Protein (6.4-8.2) g/dL Albumin (3.4-5.0) g/dL Lipase (73-393) U/L Urine Color (Yellw/Straw) Urine Clarity (Clear) Urine pH (5.0-8.5) Ur Specific [place] (1.002-1.035) Urine Protein (Neg-Trace) mg/dL Urine Glucose (UA) (Negative) mg/dL Urine Ketones (Negative) mg/dL Urine Occult Blood (Negative) Urine Nitrate (Negative) Urine Bilirubin (Negative) Urine Urobilinogen (Less than 2) mg/dL Ur Leukocyte Esterase (Negative) Urine RBC (0-3) /hpf Urine WBC (0-5) /hpf Ur Squamous Epith Cells (0-5) /hpf Urine Bacteria (None) /hpf Micro UA Comment Ur Microscopic Review Urine Culture Comments Imaging Data Radiologist's impression: Chest X-Ray 02/02/18 20:59 CONCLUSION: No acute cardiopulmonary disease demonstrated. Discharge Plan Discharge Disposition Patient Disposition: ED Admit(ED Internal Use Only) Discharge Condition Condition: Stable Discharge Order Discharge Orders: ED Use Only Admit Order (Routine); Ordered 02/02/18 Ordered By: Marianne Blue Discharge Details Diagnosis: SIRS (systemic inflammatory response syndrome), Sepsis Physicians Team ED Provider: Marianne Blue Primary Care Provider: Gricelda Cheatham Attending Provider: Lety Mancera Status ED Status: Left Department Discharge Information Discharge Date/Time: 02/03/18 00:35
[2018-02-02] MEDS ORDERED: Sod Chloride 0.9% Inj 1,000 ML IV.CONT SCH (23:00)
[2018-02-02] MEDS ORDERED: Azithromycin Inj 500 MG in Sodium Chlor 0.9% Inj 250 ML IV.SIG SCH (23:00)
[2018-02-03 01:21] LABS: Bilirubin,Urine Negative (Negative); Clarity,Urine Clear (Clear); Color,Urine Yellow (Yellw/Straw); Glucose,Urine (UA) Negative (Negative); Leukocyte Esterase,Urine Small (Negative); Nitrite,Urine Negative (Negative); Specific Gravity,Urine Less/Equal 1.005 (1.002-1.035); Urobilinogen,Urine 0.2 mg/dL (Less than 2)
[2018-02-03 01:32] LABS: Bacteria,Urine Few /hpf; RBC,Urine 0-3 /hpf (0-3)
[2018-02-03] MEDS: Heparin - SQ 10,000 UNITS/ML Vial SQ SCH ×3 (01:52→23:02)
[2018-02-03] MEDS: Levothyroxine 88 MCG Tablet PO SCH (06:30)
[2018-02-03 06:47] LABS: Baso # (Auto) 0.1 th/mm3 (0.0-0.2); Baso % (Auto) 0.3 % (0.0-2.0); Eos % (Auto) 0.2 % (0.0-4.0); Hematocrit 33.1 % (35.0-46.0); Hemoglobin 11.2 gm/dL (11.6-15.3); Lymph # (Auto) 1.3 th/mm3 (1.0-4.8); Lymph % (Auto) 5.5 % (9.0-44.0); Mean Corpuscular HGB Conc 33.8 % (32.0-36.0); Mean Corpuscular Hemoglobin 30.8 pg (27.0-34.0); Mono # (Auto) 1.3 th/mm3 (0.0-0.9); Mono % (Auto) 5.8 % (0.0-8.0); Neut % (Auto) 88.2 % (16.0-70.0); Platelet Count 315 th/mm3 (150-450); Red Blood Count 3.63 mil/mm3 (4.00-5.30); Red Cell Distribution Width 13.2 % (11.6-17.2); White Blood Count 22.7 th/mm3 (4.0-11.0)
[2018-02-03 06:53] LABS: Potassium 3.1 meq/L (3.5-5.1)
[2018-02-03 06:59] LABS: Carbon Dioxide 27.6 meq/L (21.0-32.0)
[2018-02-03 07:46] LABS: Eosinophils 1 % (0-4); Lymphocytes 5 % (9-44); Monocytes 3 % (0-8); Platelet Estimate Normal (Normal); Platelet Morphology Normal (Normal)
[2018-02-03] MEDS: Pregabalin 25 MG Capsule PO SCH ×2 (08:28→21:42)
[2018-02-03] MEDS: Duloxetine 60 MG DR Capsule PO SCH (08:28)
[2018-02-03] MEDS: Atenolol 25 MG Tablet PO SCH (08:28)
[2018-02-03] MEDS: Loratadine 10 MG Tablet PO SCH (08:29)
[2018-02-03] MEDS: Modafinil 200 MG Tablet PO SCH (08:36)
[2018-02-03] MEDS ORDERED: Naloxone Inj 0.4 MG/ML Vial IV.PUSH PRN (08:45)
[2018-02-03] MEDS ORDERED: Ketorolac Inj 30 MG/ML (IVP) Vial IV.PUSH PRN (08:45)
[2018-02-03] MEDS ORDERED: Acetaminophen 325 MG Tablet PO PRN (08:45)
--- NOTE | 2018-02-03 08:50 | P.HPIM ---
History of Present Illness Primary Care Physician: Gricelda Cheatham MD Chief Complaint: Fever, body aches. History of Present Illness: 72-year-old white female with a history of lupus, sarcoidosis not on immunosuppressants, hypothyroidism, hypertension, COPD presents to the emergency room with a 5-day history of intermittent chills and fever, body aches, joint pains, dry cough, and poor appetite. She reports mild nausea however is not associated with vomiting. In addition she developed some diarrhea yesterday evening. She has not seen any blood in her stools or black tarry stools. It is not associated with abdominal pain. She reports no significant shortness of breath associated with the symptoms. She reports she fell 6 weeks ago from her bed leading to left tenth and ninth rib fractures and still has pleuritic chest pain when she takes a deep breath. She reports she has the similar symptoms when she has developed pneumonia in the past. She denies any recent sick contacts. She has not had any recent travels. Diagnosis (1) Sepsis: Review of Systems Constitutional: Reports as per HPI, Reports anorexia, Reports body ache(s), Reports chills, Reports fever(s), Reports headache(s), Denies lethargy, Denies night sweats, Reports poor appetite and Denies weakness Eyes: Denies blurry vision, Denies change in vision and Denies eye pain Ears, Nose, Mouth, and Throat: Denies abnormal hearing, Denies headache(s), Denies mouth pain, Denies nasal congestion, Denies neck pain and Denies sore throat Cardiovascular: Reports chest pain (Pruritic left-sided chest pain from rib fractures.), Denies diaphoresis, Denies rapid heart rate, Denies pedal edema, Denies palpitations, Denies dyspnea, Denies orthopnea and Denies paroxysmal nocturnal dyspnea Respiratory: Reports cough, Denies hemoptysis, Reports pain with cough, Denies dyspnea and Reports wheezing Gastrointestinal: Denies abdominal pain, Denies constipation, Reports loose stools, Reports nausea and Denies vomiting Musculoskeletal: Denies back pain, Reports myalgias, Reports arthralgias, Denies muscle cramps, Denies muscle weakness, Denies neck pain and Denies numbness Skin/Breast: Denies new lesions and Denies rash Neurologic: Denies abnormal hearing, Reports headache(s), Denies focal weakness , Denies memory loss and Denies numbness Psychiatric: Denies anxiety, Denies depression and Denies memory loss Endocrine: Denies cold intolerance, Denies heat intolerance and Denies palpitations Hematologic/Lymphatic: Denies easy bleeding and Denies easy bruising [facility] Medical History Medical History Asthma (Chronic) COPD (chronic obstructive pulmonary disease) (Chronic) GERD (gastroesophageal reflux disease) (Chronic) High cholesterol (Chronic) Hypertension (Chronic) Hypothyroidism (Chronic) Lupus (Chronic) Sarcoidosis (Chronic) Seasonal allergies (Chronic) Surgical History Surgical History History of appendectomy (Chronic) History of carpal tunnel surgery of left wrist (Chronic) History of tonsillectomy and adenoidectomy (Chronic) Hx of cholecystectomy (Chronic) Hx of shoulder surgery (Chronic) Hx of sinus surgery (Chronic) Social History Social History Substance History: No History of Abuse Second Hand Smoke Exposure: No Smoking Status: Never smoker How Often Do You Have a Drink Containing Alcohol: Never Recent Travel in [facility] within the Last 8 Weeks: No Recent Out of Country Travel within the Last 8 Weeks: No Immunization History Tetanus Immunization: Unsure Hx Influenza Vaccine This Season: No Medications and Allergies Allergies Allergy/AdvReac Type Severity Reaction Status Date / Time penicillin G Allergy Severe Confusion Verified 11/05/16 13:09 diphenhydramine Allergy Mild VIOLENCE Verified 11/05/16 13:09 Home Medications Medication Instructions Recorded Confirmed Type albuterol sulfate [Ventolin HFA] 2 puff INHALATION Q4-6H PRN 12/17/17 02/02/18 History atenolol 25 mg PO DAILY 12/17/17 02/02/18 History duloxetine [Cymbalta] 60 mg PO DAILY 12/17/17 02/02/18 History fluticasone-vilanterol [Breo 1 inh INHALATION DAILY 12/17/17 02/02/18 History Ellipta] levothyroxine 88 mcg PO DAILY 12/17/17 02/02/18 History loratadine 10 mg PO DAILY 12/17/17 02/02/18 History modafinil 200 mg PO DAILY 12/17/17 02/02/18 History montelukast 10 mg PO QPM 12/17/17 02/02/18 History pregabalin [Lyrica] 50 mg PO BID 12/17/17 02/02/18 History esomeprazole magnesium [Nexium] 40 mg PO DAILY 02/02/18 02/02/18 History Active Medications: Active Medications Acetaminophen (Tylenol) 650 mg PO Q4H PRN PRN Reason: headache/fever/pain1-4 Acetaminophen (Tylenol) 650 mg PO Q6HR PRN PRN Reason: PAIN SCALE 1 TO 2 Hydrocodone Bitart/Acetaminophen ([place] 10/325) 1 tab PO Q6H PRN PRN Reason: Pain Scale 5 to 10 Last Admin: 02/03/18 02:48 Dose: 1 tab Al Hydroxide/Mg Hydroxide (Milk Of Meghana Donaldson) 30 ml PO Q12H PRN PRN Reason: Mild Constipation Albuterol (Duoneb Neb (Prn)) 1 ampul NEB Q4HR NEB PRN PRN Reason: SOB/wheezing Last Admin: 02/02/18 23:41 Dose: 1 ampul Atenolol (Tenormin) 25 mg PO DAILY [facility] Last Admin: 02/03/18 08:28 Dose: 25 mg Azithromycin (Zithromax) 500 mg PO 2300 [facility] Bisacodyl (Dulcolax Supp) 10 mg RECTAL DAILY PRN PRN Reason: SEVERE CONSITIPATION Duloxetine HCl (Cymbalta) 60 mg PO DAILY [facility] Last Admin: 02/03/18 08:28 Dose: 60 mg Fluticasone/Vilanterol (Breo Ellipta 200/25 Mcg Inh) 1 puff INH BID [facility] Last Admin: 02/03/18 08:36 Dose: Not Given Heparin Sodium (Porcine) (Heparin Inj) 5,000 units SQ Q12H [facility] Last Admin: 02/03/18 01:52 Dose: 5,000 units Sodium Chloride (Ns Inj) 1,000 mls @ 84 mls/hr IV.CONT .[id number] [facility] Stop: 02/03/18 10:54 Last Admin: 02/03/18 01:53 Dose: 84 mls/hr Cefepime HCl 2,000 mg/ Sodium (Chloride) 100 mls @ 200 mls/hr IV.SIG Q8H [facility] Last Admin: 02/03/18 06:30 Dose: 200 mls/hr Influenza Virus Vaccine (Fluarix (Quad) Vaccine Inj) 0.5 ml IM .ONCE ONE Stop: 02/03/18 09:01 Last Admin: 02/03/18 08:30 Dose: Not Given Ketorolac Tromethamine (Toradol Inj) 15 mg IV.PUSH Q6H PRN PRN Reason: PAIN 3-5; IF UABLE TO TAKE PO Stop: 02/08/18 08:44 Lactobacillus Acidophilus (Lactinex) 1 tab PO TID [facility] Lactulose (Lactulose Liq) 30 ml PO DAILY PRN PRN Reason: SEVERE CONSITIPATION Levothyroxine Sodium (Synthroid) 88 mcg PO DAILY@0700 [facility] Last Admin: 02/03/18 06:30 Dose: 88 mcg Loratadine (Claritin) 10 mg PO DAILY [facility] Last Admin: 02/03/18 08:29 Dose: 10 mg Modafinil (Provigil) 200 mg PO DAILY [facility] Last Admin: 02/03/18 08:36 Dose: Not Given Montelukast Sodium (Singulair) 10 mg PO QPM [facility] Naloxone HCl (Narcan Inj) 0.4 mg IV.PUSH UNSCH PRN PRN Reason: SEE LABEL COMMENTS Ondansetron HCl (Zofran Inj) 4 mg IV.PUSH Q6H PRN PRN Reason: NAUSEA OR VOMITING Pantoprazole Sodium (Protonix) 40 mg PO DAILY [facility] Last Admin: 02/03/18 08:28 Dose: 40 mg Pregabalin (Lyrica) 50 mg PO BID [facility] Last Admin: 02/03/18 08:28 Dose: 50 mg Sennosides (Senokot) 17.2 mg PO Q12H PRN PRN Reason: Moderate Constipation Sodium Chloride (Ns Flush) 2 ml IV.FLUSH PRN PRN PRN Reason: FLUSH AFTER USING IV ACCESS Sodium Chloride (Ns Flush) 2 ml IV.FLUSH BID [facility] Last Admin: 02/03/18 08:31 Dose: 2 ml Sodium Chloride (Ns Flush) 2 ml IV.FLUSH PRN PRN PRN Reason: FLUSH AFTER USING IV ACCESS Physical Exam Vital signs: Last Vital Signs Temp 97.9 F 02/03/18 00:54 Pulse 97 H 02/03/18 00:54 Resp 18 02/03/18 00:54 BP 123/72 02/03/18 00:54 Pulse Ox 96 02/03/18 07:37 Intake & Output 02/01/18 02/02/18 02/03/18 02/04/18 06:59 06:59 06:59 06:59 Intake Total 1350 / 1350 Balance 1350 / 1350 Weight 87 kg Narrative: GENERAL: Well-nourished well-developed white female in no acute distress SKIN: Warm and dry. HEAD: Atraumatic. Normocephalic. EYES: Pupils equal and round. No scleral icterus. No injection or drainage. ENT: No nasal bleeding or discharge. Mucous membranes pink and moist. NECK: Trachea midline. No JVD. CARDIOVASCULAR: Regular rate and rhythm. RESPIRATORY: No accessory muscle use. Relatively clear to auscultation. Breath sounds equal bilaterally. GASTROINTESTINAL: Abdomen soft, non-tender, nondistended. Hepatic and splenic margins not palpable. Normoactive bowel sounds MUSCULOSKELETAL: Extremities without clubbing, cyanosis, or edema. No obvious deformities. NEUROLOGICAL: Awake and alert to person place time and situation. No obvious cranial nerve deficits. Motor grossly within normal limits. Five out of 5 muscle strength in the arms and legs. Normal speech. PSYCHIATRIC: Appropriate mood and affect; insight and judgment normal. Results Labs CBC & Chem 7: 02/03/18 05:40 02/03/18 05:40 Imaging Impressions Chest X-Ray 02/02/18 20:59 CONCLUSION: No acute cardiopulmonary disease demonstrated. Caprini VTE Risk Assessment Caprini VTE Risk Assessment: Moderate/High Risk (score >= 2) Caprini Risk Assessment Model: Point Value = 1 Point Value = 2 Point Value = 3 Point Value = 5 Age 41-60 Minor surgery BMI > 25 kg/m2 Swollen legs Varicose veins or History of unexplained or recurrent spontaneous Oral contraceptives or hormone replacement Sepsis (< 1 month) Serious lung disease, including pneumonia (< 1 month) Abnormal pulmonary function Acute myocardial infarction Congestive heart failure (< 1 month) History of inflammatory bowel disease Medical patient at bed rest Age 61-74 Arthroscopic surgery Major open surgery (> 45 min) Laparoscopic surgery (> 45 min) Malignancy Confined to bed (> 72 hours) Immobilizing plaster cast Central venous access Age >= 75 History of VTE Family history of VTE Factor V Leiden Prothrombin [id number] Lupus anticoagulant Anticardiolipin antibodies Elevated serum homocysteine Heparin-induced thrombocytopenia Other congenital or acquired thrombophilia Stroke (< 1 month) Elective arthroplasty Hip, pelvis, or leg fracture Acute spinal cord injury (< 1 month) Prophylaxis Regimen: Total Risk Factor Score Risk Level Prophylaxis Regimen 0-1 Low Early ambulation 2 Moderate Order ONE of the following: *Sequential Compression Device (SCD) *Heparin 5000 units SQ BID 3-4 Higher Order ONE of the following medications: *Heparin 5000 units SQ TID *Enoxaparin/Lovenox 40 mg SQ daily (WT < 150 kg, CrCl > 30 mL/min) *Enoxaparin/Lovenox 30 mg SQ daily (WT < 150 kg, CrCl > 10-29 mL/min) *Enoxaparin/Lovenox 30 mg SQ BID (WT < 150 kg, CrCl > 30 mL/min) AND/OR *Sequential Compression Device (SCD) 5 or more Highest Order ONE of the following medications: *Heparin 5000 units SQ TID (Preferred with Epidurals) *Enoxaparin/Lovenox 40 mg SQ daily (WT < 150 kg, CrCl > 30 mL/min) *Enoxaparin/Lovenox 30 mg SQ daily (WT < 150 kg, CrCl > 10-29 mL/min) *Enoxaparin/Lovenox 30 mg SQ BID (WT < 150 kg, CrCl > 30 mL/min) AND *Sequential Compression Device (SCD) Assessment and Plan (1) Sepsis: Code(s): A41.9 - Sepsis, unspecified organism Status: Acute Plan 72-year-old white female person to the emergency room with a 5-day history of fever, chills, body aches, nausea Sepsis present on admission due to leukocytosis and tachycardia with source likely possible viral versus early pneumonia. Follow-up with blood cultures, Zithromax and cefepime given the emergency room will continue antibiotics. Pain control for myalgias and arthralgias. Lactic acid has trended down. History of ninth and 10th rib fracture 6 weeks ago-encouraged densitometry use, pain control. COPD, historyno signs of acute exacerbation continue with bronchodilators Hypothyroidismresume Synthroid History of sarcoidosis, lupusresume home Cymbalta, Lyrica, and [place]. Diarrheastart Lactinex, IV fluid hydration. Hypokalemiareplete DVT prophylaxisheparin H&P: Quality VTE Deep Vein Thrombosis/Pulmonary Embolism Present on Admission: No _ (1) Sepsis Qualifiers: Sepsis type:
[2018-02-03] MEDS ORDERED: Senna/Docusate Sodium 8.6/50 MG Tablet PO SCH (09:00)
[2018-02-03] MEDS ORDERED: Influenza (Quadrivalent) Vaccine 0.5 ML Syringe IM ONE (09:00)
[2018-02-03] MEDS: Lactobacillus Acidophilus/L. Spores Tablet PO SCH ×3 (10:17→17:00)
[2018-02-03] MEDS: Montelukast 10 MG Tablet PO SCH (17:00)
[2018-02-03] MEDS: Azithromycin 250 MG Tablet PO SCH (23:32)
[2018-02-04] MEDS: Levothyroxine 88 MCG Tablet PO SCH (06:25)
[2018-02-04] MEDS: Modafinil 200 MG Tablet PO SCH (10:56)
[2018-02-04] MEDS: Duloxetine 60 MG DR Capsule PO SCH (10:56)
[2018-02-04] MEDS: Pregabalin 25 MG Capsule PO SCH ×2 (10:56→20:46)
[2018-02-04] MEDS: Atenolol 25 MG Tablet PO SCH (10:56)
[2018-02-04] MEDS: Lactobacillus Acidophilus/L. Spores Tablet PO SCH ×3 (10:56→19:17)
[2018-02-04] MEDS: Loratadine 10 MG Tablet PO SCH (10:56)
--- NOTE | 2018-02-04 13:24 | P.PNIM ---
Subjective Interval history: 72-year-old female who was seen and examined today for follow-up on sepsis, patient is clinically improving patient still with low-grade fever with T-max 100.7. Patient states that she is feeling much better. Vital signs remained stable. Physical Exam Vital signs: Vital Signs 02/03/18 13:37 02/03/18 20:00 02/04/18 00:00 Temperature 100.0 F H 100.4 F H 100.7 F H Pulse Rate 77 89 88 Respiratory Rate 16 18 20 Blood Pressure 117/62 138/63 153/72 H Pulse Oximetry 97 93 L 95 02/04/18 07:53 02/04/18 08:00 Temperature 100.6 F H Pulse Rate Respiratory Rate 20 Blood Pressure 158/71 H Pulse Oximetry 96 93 L Intake & Output 02/03/18 02/04/18 02/04/18 18:59 06:59 18:59 Intake Total 1000 / 1000 2350 / 2350 Balance 1000 / 1000 2350 / 2350 Weight 80.6 kg Intake: IV 200 / 200 2350 / 2350 NS Inj 1,000 ML @ 84 mls/hr IV. 1000 / 1000 CONT .[id number] [facility] Rx#: [id number] Maxipime Inj 2,000 MG In NS Inj 200 / 200 100 / 100 100 ML @ 200 mls/hr IV.SIG Q8H [facility] Rx#:[id number] Oral 800 / 800 Other: # Voids 5 Date of Last Bowel Movement 02/03/18 # Bowel Movements 3 Narrative: GENERAL: Well-developed, well-nourished, in no acute distress. alert and orientated HEENT: Head is normocephalic without any lesions or masses noted. Facial features are symmetric. Eyes: Extraocular muscles are intact. Conjunctivae were clear. NECK: Supple without any masses. Trachea midline no deviation. No JVD, CARDIAC: Regular rhythm, regular rate. S1/S2 are heard. 2/6 ejection murmur, no gallops or rubs. LUNGS: Clear to auscultation bilaterally. No wheeze, rhonchi or rales. No use of accessory muscles on inspiration or expiration. ABDOMEN: Soft, nontender. Nondistended. Bowel sounds heard in all 4 quadrants. No organomegaly or masses. Negative rebound, negative guarding EXTREMITIES: No edema, pulses are equal bilaterally. No cyanosis or clubbing NEUROLOGY: Mood and affect appear appropriate. Cranial nerves II through XII grossly intact. Moving all extremities, speech is clear Results - Labs CBC & Chem 7: 02/03/18 05:40 02/03/18 05:40 Microbiology 02/02/18 21:05 Blood - Peripheral Aerobic Blood Culture - Preliminary No growth in 2 days 02/02/18 21:05 Blood - Peripheral Anaerobic Blood Culture - Preliminary No growth in 2 days 02/02/18 21:00 Blood - Peripheral Aerobic Blood Culture - Preliminary No growth in 2 days 02/02/18 21:00 Blood - Peripheral Anaerobic Blood Culture - Preliminary No growth in 2 days Assessment and Plan - Assessment (1) Sepsis Code(s): A41.9 - Sepsis, unspecified organism Status: Acute - Plan Sepsis -Present on admission due to leukocytosis with bandemia and tachycardia with source likely possible viral versus early pneumonia. -Patient currently on cefepime, Zithromax -Influenza testing was negative -Blood cultures are negative for 2 days -Obtain Legionella/strep pneumococcal testing Diarrhea Continue Lactinex, -Continue IV fluid hydration. -Check C. difficile culture Electrolyte abnormalities with hypokalemia, hypomagnesemia -Continue monitor replete as needed History of ninth and 10th rib fracture 6 weeks ago -encouraged incentive spirometry -Continue pain control COPD, history -no signs of acute exacerbation -continue with bronchodilators Hypothyroidism resume Synthroid History of sarcoidosis, lupus resume home Cymbalta, Lyrica, and [place]. DVT prophylaxis heparin Discharge Planning: Discharge planning in 24-48 hours depending on patient remaining afebrile, clinical improvement.
[2018-02-04 14:08] LABS: Baso # (Auto) 0.1 th/mm3 (0.0-0.2); Baso % (Auto) 0.4 % (0.0-2.0); Eos # (Auto) 0.5 th/mm3 (0.0-0.4); Eos % (Auto) 3.5 % (0.0-4.0); Hematocrit 29.6 % (35.0-46.0); Hemoglobin 9.8 gm/dL (11.6-15.3); Lymph # (Auto) 0.9 th/mm3 (1.0-4.8); Lymph % (Auto) 6.6 % (9.0-44.0); Mean Corpuscular HGB Conc 33.1 % (32.0-36.0); Mean Corpuscular Hemoglobin 29.8 pg (27.0-34.0); Mean Platelet Volume 7.5 fL (7.0-11.0); Mono # (Auto) 0.9 th/mm3 (0.0-0.9); Mono % (Auto) 6.4 % (0.0-8.0); Neut % (Auto) 83.1 % (16.0-70.0); Platelet Count 361 th/mm3 (150-450); Red Cell Distribution Width 13.1 % (11.6-17.2); White Blood Count 14.4 th/mm3 (4.0-11.0)
[2018-02-04 14:18] LABS: Calcium 7.6 mg/dL (8.5-10.1)
[2018-02-04] MEDS ORDERED: Potassium Chloride 25 MEQ Effervescent Tablet PO ONE (14:18)
[2018-02-04 14:19] LABS: Carbon Dioxide 28.1 meq/L (21.0-32.0); Magnesium 0.9 mg/dL (1.5-2.5)
[2018-02-04] MEDS ORDERED: MAGNESIUM SULFATE IV.SIG ONE (14:22)
[2018-02-04] MEDS ORDERED: SODIUM CHLOR 0.9% IV.SIG ONE (14:22)
[2018-02-04 16:22] LABS: Hematocrit 28.2 % (35.0-46.0); Hemoglobin 9.1 gm/dL (11.6-15.3); Mean Corpuscular HGB Conc 32.4 % (32.0-36.0); Mean Corpuscular Hemoglobin 29.3 pg (27.0-34.0); Mean Corpuscular Volume 90.6 fL (80.0-100.0); Platelet Count 309 th/mm3 (150-450); Red Blood Count 3.11 mil/mm3 (4.00-5.30); Red Cell Distribution Width 12.7 % (11.6-17.2); White Blood Count 19.7 th/mm3 (4.0-11.0)
[2018-02-04 16:54] LABS: Calcium 7.2 mg/dL (8.5-10.1); Carbon Dioxide 20.6 meq/L (21.0-32.0)
[2018-02-04 16:55] LABS: Potassium 4.2 meq/L (3.5-5.1)
[2018-02-04 17:02] LABS: Albumin 2.3 g/dL (3.4-5.0); Calcium-Albumin Corrected 8.6 mg/dL (8.5-10.1)
[2018-02-04 17:19] LABS: Eosinophils 7 % (0-4); Lymphocytes 13 % (9-44); Monocytes 2 % (0-8)
[2018-02-04 17:20] LABS: Hypersegmented Neutrophils 1+; Platelet Estimate Normal (Normal); Platelet Morphology Normal (Normal)
[2018-02-04] MEDS: Mag Sulf 1 gm/100 ml Premix 100 ML IV.SIG SCH ×3 (18:20→18:22)
[2018-02-04] MEDS: Heparin - SQ 10,000 UNITS/ML Vial SQ SCH (18:20)
[2018-02-04] MEDS: Montelukast 10 MG Tablet PO SCH (19:17)
[2018-02-05] MEDS: Heparin - SQ 10,000 UNITS/ML Vial SQ SCH (00:22)
[2018-02-05] MEDS: Azithromycin 250 MG Tablet PO SCH (00:22)
[2018-02-05] MEDS: Levothyroxine 88 MCG Tablet PO SCH (06:23)
[2018-02-05 07:29] LABS: Baso % (Auto) 0.4 % (0.0-2.0); Eos # (Auto) 0.5 th/mm3 (0.0-0.4); Eos % (Auto) 4.9 % (0.0-4.0); Hemoglobin 9.5 gm/dL (11.6-15.3); Lymph # (Auto) 0.9 th/mm3 (1.0-4.8); Lymph % (Auto) 8.3 % (9.0-44.0); Mean Corpuscular HGB Conc 32.7 % (32.0-36.0); Mean Corpuscular Volume 91.8 fL (80.0-100.0); Mean Platelet Volume 7.5 fL (7.0-11.0); Mono % (Auto) 9.5 % (0.0-8.0); Neut # (Auto) 7.9 th/mm3 (1.8-7.7); Neut % (Auto) 76.9 % (16.0-70.0); Platelet Count 356 th/mm3 (150-450); Red Blood Count 3.15 mil/mm3 (4.00-5.30); Red Cell Distribution Width 13.3 % (11.6-17.2); White Blood Count 10.3 th/mm3 (4.0-11.0)
[2018-02-05 07:58] LABS: Potassium 3.7 meq/L (3.5-5.1)
[2018-02-05 08:00] LABS: Calcium 7.9 mg/dL (8.5-10.1)
[2018-02-05 08:20] LABS: Carbon Dioxide 25.7 meq/L (21.0-32.0); Magnesium 1.8 mg/dL (1.5-2.5)
[2018-02-05] MEDS: Lactobacillus Acidophilus/L. Spores Tablet PO SCH (09:07)
[2018-02-05] MEDS: Duloxetine 60 MG DR Capsule PO SCH (09:07)
[2018-02-05] MEDS: Pregabalin 25 MG Capsule PO SCH (09:08)
[2018-02-05] MEDS: Loratadine 10 MG Tablet PO SCH (09:08)
[2018-02-05] MEDS: Modafinil 200 MG Tablet PO SCH (09:08)
[2018-02-05] MEDS: Atenolol 25 MG Tablet PO SCH (09:09)
--- NOTE | 2018-02-05 09:42 | P.DS ---
Date of admission: 02/02/18 22:51 Primary care physician: Gricelda Cheatham MD Attending physician on discharge: Dustin Powell Anticipated date of discharge: 02/05/18 Brief History from admission: 72-year-old white female with a history of lupus, sarcoidosis not on immunosuppressants, hypothyroidism, hypertension, COPD presents to the emergency room with a 5-day history of intermittent chills and fever, body aches , joint pains, dry cough, and poor appetite. She reports mild nausea however is not associated with vomiting. In addition she developed some diarrhea yesterday evening. She has not seen any blood in her stools or black tarry stools. It is not associated with abdominal pain. She reports no significant shortness of breath associated with the symptoms. She reports she fell 6 weeks ago from her bed leading to left tenth and ninth rib fractures and still has pleuritic chest pain when she takes a deep breath. She reports she has the similar symptoms when she has developed pneumonia in the past. She denies any recent sick contacts. She has not had any recent travels. DS: Diagnosis - Discharge Diagnosis (1) Sepsis Status: Acute DS: Medications - Discharge Medications Prescriptions: azithromycin [Zithromax] 500 mg PO DAILY #5 tab DS: Summary Hospital Course: 72-year-old female who is immunosuppressed presented to the hospital because of intermittent fevers for 5 days. Patient had workup done and found to have sepsis due to leukocytosis, tachycardia, possible developing pneumonia. Patient was admitted to hospital on empirical antibiotics include cefepime and Zithromax. Full workup was ascertained with blood cultures which have remained negative, influenza testing which was negative, Legionella, strep pneumonia testing which were negative. Patient did have loose stools and C. difficile culture was ascertained which was negative. Patient continued to have fever during her stay in the hospital and is now been afebrile for a day. Her leukocytosis has significantly improved. Patient responded to treatment quite well. Patient is clinically stable at this time, afebrile, no more signs of sepsis. Patient will be discharged home on antibiotics with outpatient follow-up with her primary medical doctor. - Time Spent with Patient Total time spent providing and/or coordinating discharge services: Greater than 30 minutes - Quality: VTE Deep Vein Thrombosis/Pulmonary Embolism Present on Admission: No Exam Vital signs: Vital Signs 02/04/18 12:00 02/04/18 16:00 02/04/18 20:00 Temperature 101.4 F H 101.3 F H 100.7 F H Pulse Rate 92 H 90 90 Respiratory Rate 20 20 20 Blood Pressure 146/72 H 147/74 H 147/71 H Pulse Oximetry 94 L 95 02/04/18 20:46 02/04/18 21:33 02/04/18 22:00 Temperature Pulse Rate Respiratory Rate 20 20 Blood Pressure Pulse Oximetry 93 L 02/04/18 23:00 02/05/18 00:00 02/05/18 08:36 Temperature 98.2 F 99.6 F Pulse Rate 82 85 Respiratory Rate 18 20 Blood Pressure 142/74 H 133/74 Pulse Oximetry 94 L 95 Intake & Output 02/04/18 02/05/18 02/05/18 18:59 06:59 18:59 Intake Total 710 / 710 300 / 300 100 / 100 Balance 710 / 710 300 / 300 100 / 100 Weight 82.3 kg Intake: IV 200 / 200 300 / 300 100 / 100 Maxipime Inj 2,000 MG In NS Inj 100 / 100 200 / 200 100 / 100 100 ML @ 200 mls/hr IV.SIG Q8H [facility] Rx#:[id number] Magnesium Sulfate 1 gm/D5W 100 100 / 100 100 / 100 ml Premix 100 ML @ 100 mls/hr IV.SIG Q1H [facility] Rx#:[id number] Oral 510 / 510 Other: # Voids 8 2 Date of Last Bowel Movement 02/04/18 02/04/18 # Bowel Movements 1 Narrative: GENERAL: Well-developed, well-nourished, in no acute distress. alert and orientated HEENT: Head is normocephalic without any lesions or masses noted. Facial features are symmetric. Eyes: Extraocular muscles are intact. Conjunctivae were clear. NECK: Supple without any masses. Trachea midline no deviation. No JVD, CARDIAC: Regular rhythm, regular rate. S1/S2 are heard. 2/6 ejection murmur, no gallops or rubs. LUNGS: Clear to auscultation bilaterally. No wheeze, rhonchi or rales. No use of accessory muscles on inspiration or expiration. ABDOMEN: Soft, nontender. Nondistended. Bowel sounds heard in all 4 quadrants. No organomegaly or masses. Negative rebound, negative guarding EXTREMITIES: No edema, pulses are equal bilaterally. No cyanosis or clubbing NEUROLOGY: Mood and affect appear appropriate. Cranial nerves II through XII grossly intact. Moving all extremities, speech is clear Results Procedures completed during hospitalization: none Labs on day of discharge: Labs from last 24 hours 02/05/18 02/05/18 02/04/18 07:20 07:20 15:52 CBC w Diff Auto diff final WBC 10.3 RBC 3.15 L Hgb 9.5 L Hct 29.0 L MCV 91.8 MCH 30.0 MCHC 32.7 RDW 13.3 Plt Count 356 MPV 7.5 Neut % (Auto) 76.9 H Lymph % (Auto) 8.3 L [place] % (Auto) 9.5 H Eos % (Auto) 4.9 H Baso % (Auto) 0.4 Neut # (Auto) 7.9 H Lymph # (Auto) 0.9 L [place] # (Auto) 1.0 H Eos # (Auto) 0.5 H Baso # (Auto) 0.0 WBC Differential . Seg Neuts % (Manual) Band Neuts % (Manual) Lymphocytes % (Manual) Monocytes % (Manual) Eosinophils % (Manual) Basophils % (Manual) Abs Neuts (Manual) Differential Comment . Hypersegmented Neuts Platelet Estimate Platelet Morphology Sodium 140 135 L Potassium 3.7 4.2 D Chloride 106 104 Carbon Dioxide 25.7 20.6 L Anion Gap 8 10 BUN 7 7 Creatinine 0.74 0.69 Estimated GFR 77 L 83 L Random Glucose 122 H 101 Calcium 7.9 L 7.2 L* Calcium Adj for Albumin 8.6 Magnesium 1.8 D Albumin 2.3 L D Stl C.difficile DNA Amp St C. diff Tox Epid 027 02/04/18 02/04/18 02/04/18 15:52 14:30 13:50 CBC w Diff Slide review pending WBC 19.7 H RBC 3.11 L Hgb 9.1 L Hct 28.2 L MCV 90.6 MCH 29.3 MCHC 32.4 RDW 12.7 Plt Count 309 MPV 8.0 Neut % (Auto) Lymph % (Auto) [place] % (Auto) Eos % (Auto) Baso % (Auto) Neut # (Auto) Lymph # (Auto) [place] # (Auto) Eos # (Auto) Baso # (Auto) WBC Differential Manual diff final Seg Neuts % (Manual) 74 H Band Neuts % (Manual) 3 Lymphocytes % (Manual) 13 Monocytes % (Manual) 2 Eosinophils % (Manual) 7 H Basophils % (Manual) 1 Abs Neuts (Manual) 15.2 H Differential Comment . Hypersegmented Neuts 1+ H Platelet Estimate Normal Platelet Morphology Normal Sodium 137 Potassium 3.0 L Chloride 101 Carbon Dioxide 28.1 Anion Gap 8 BUN 7 Creatinine 0.87 Estimated GFR 64 L Random Glucose 147 H Calcium 7.6 L Calcium Adj for Albumin Magnesium 0.9 L Albumin Stl C.difficile DNA Amp Negative St C. diff Tox Epid 027 Negative 02/04/18 13:50 CBC w Diff Auto diff final WBC 14.4 H RBC 3.30 L Hgb 9.8 L Hct 29.6 L MCV 90.0 MCH 29.8 MCHC 33.1 RDW 13.1 Plt Count 361 MPV 7.5 Neut % (Auto) 83.1 H Lymph % (Auto) 6.6 L [place] % (Auto) 6.4 Eos % (Auto) 3.5 Baso % (Auto) 0.4 Neut # (Auto) 12.0 H Lymph # (Auto) 0.9 L [place] # (Auto) 0.9 Eos # (Auto) 0.5 H Baso # (Auto) 0.1 WBC Differential . Seg Neuts % (Manual) Band Neuts % (Manual) Lymphocytes % (Manual) Monocytes % (Manual) Eosinophils % (Manual) Basophils % (Manual) Abs Neuts (Manual) Differential Comment . Hypersegmented Neuts Platelet Estimate Platelet Morphology Sodium Potassium Chloride Carbon Dioxide Anion Gap BUN Creatinine Estimated GFR Random Glucose Calcium Calcium Adj for Albumin Magnesium Albumin Stl C.difficile DNA Amp St C. diff Tox Epid 027 Preliminary micro results at discharge 02/02/18 21:05 Aerobic Blood Culture - Preliminary Blood - Peripheral No growth in 2 days Anaerobic Blood Culture - Preliminary No growth in 2 days 02/02/18 21:00 Aerobic Blood Culture - Preliminary Blood - Peripheral No growth in 2 days Anaerobic Blood Culture - Preliminary No growth in 2 days - Impressions ITS Impressions Chest X-Ray 02/02/18 20:59 CONCLUSION: No acute cardiopulmonary disease demonstrated. Discharge Plan - Discharge Disposition Patient Disposition: 01 Discharge Home - Discharge Condition Condition: Stable - Discharge Order Discharge Orders: Discharge Order (Routine); Ordered 02/05/18 Ordered By: Mark García - Discharge Details Anticipated Discharge Date: 02/05/18 - Physicians Team Primary Care Provider: Gricelda Cheatham Attending Provider: Dustin Powell
== END 2018-02-05 10:42 | disposition home or self-care (01) ==
LOC: PHED 20:25 → INTOOBSV 22:51 → PHEDA 22:51 → PH3 02-03 00:22
PROVIDERS: ADMIT Hospitalist; ATTEND Hospitalist